=== PATIENT | male | born 1945 | race Caucasian/White ===

== ENCOUNTER 2017-10-22 15:42 | Inpatient (IN) | payer MEDICARE ==
[2017-10-22] MEDS ORDERED: methylPREDNISolone Sodium Succinate 125 MG/2 ML SDV IVPUSH ONE (15:57)
[2017-10-22] MEDS ORDERED: Albuterol/Ipratropium 3.0-0.5 MG/3 ML Neb Soln NEB ONE (15:57)
[2017-10-22] MEDS: Sodium Chloride 0.9% 10 ML Syringe FLUSH PRN ×2 (16:54→20:10)
--- NOTE | 2017-10-22 17:17 | EDM.PDOC ---
ED HPI GENERAL MEDICAL PROBLEM - General Chief Complaint: Lower Extremity Injury/Pain Stated Complaint: FELL YESTERDAY, L LEG WON'T MOVE Time Seen by Provider: 10/22/17 16:09 Source of Information: Reports: Patient, EMS History Limitations: Reports: Physical Impairment - History of Present Illness INITIAL COMMENTS - FREE TEXT/NARRATIVE: 72 y.o.w.m with a h/o COPD, obesity, poor hygiene, come to the ed by EMS 2 days after he fell at home, not able to get up from his chair. Pt refused to come to the ed yesterday, but agreed to come to the ed today. Pt was too week to ambulate due to SOB and left lower leg pain due to fall. BP 124/91 Pulse 103 Temp 37.1 Pulse ox 94% on 2 liters Onset Date: 10/21/17 Onset Time: 15:00 Duration: Day(s):, Getting Worse Location: Reports: Lower Extremity, Left, Generalized Treatments RECORDS OFFICER: Reports: Breathing Treatments, Splint(s) - Related Data Allergies Allergy/AdvReac Type Severity Reaction Status Date / Time No Known Allergies Allergy Verified 10/22/17 18:35 Home Meds: Home Meds Albuterol Sulfate [Ventolin Hfa] 2 puff PO ASDIRECTED PRN 10/22/17 [History] Albuterol/Ipratropium [Combivent Respimat] 2 puff PO Q4H 10/22/17 [History] Ipratropium/Albuterol Sulfate [Iprat-Albut 0.5-3(2.5) mg/3 ml] 3 ampule INH Q4H 10/22/17 [History] Lisinopril/Hydrochlorothiazide [Lisinopril-Hctz 10-12.5 mg Tab] 1 tab PO DAILY 10/22/17 [History] Past Medical History Cardiovascular History: Reports: Hypertension Respiratory History: Reports: COPD Gastrointestinal History: Reports: Hemorrhoids - Infectious Disease History Infectious Disease History: Reports: Measles - Past Surgical History GI Surgical History: Reports: Appendectomy, Colostomy Musculoskeletal Surgical History: Reports: Knee Replacement Social & Family History - Family History Family Medical History: Noncontributory - Tobacco Use Smoking Status *Q: Current Every Day Smoker Years of Tobacco use: 60 Packs/Tins Daily: 1 - Caffeine Use Caffeine Use: Reports: Coffee - Recreational Drug Use Recreational Drug Use: No Review of Systems - Review of Systems Review Of Systems: Unable To Obtain ED EXAM, GENERAL - Physical Exam Exam: See Below Exam Limited By: Physical Impairment General Appearance: Alert, WD/WN, Moderate Distress, Obese (morbid) Eye Exam: Bilateral Eye: Normal Inspection Ears: Normal External Exam Ear Exam: Bilateral Ear: Auricle Normal Nose: Normal Inspection, Normal Mucosa Throat/Mouth: Normal Inspection, Normal Lips, No Airway Compromise, Other (dry mucosal membrane) Head: Atraumatic, Normocephalic Neck: Normal Inspection, Supple, Non-Tender Respiratory/Chest: Respiratory Distress, Decreased Breath Sounds, Rhonchi, Wheezing, Prolonged Expiration Cardiovascular: Normal Peripheral Pulses GI/Abdominal: Normal Bowel Sounds, Soft, Other (obese) (Male) Exam: Deferred Rectal (Males) Exam: Deferred Back Exam: Normal Inspection, Full Range of Motion Extremities: Pedal Edema, Limited Range of Motion, Redness Neurological: Alert, CN II-XII Intact, Abnormal Gait Psychiatric: Normal Affect, Normal Mood Skin Exam: Warm, Dry, Rash (abdomen, left lower leg) Lymphatic: No Adenopathy Course - Vital Signs Text/Narrative:: 72 y.o.w.m with a h/o COPD, obesity, poor hygiene, come to the ed by EMS 2 days after he fell at home, not able to get up from his chair. Pt refused to come to the ed yesterday, but agreed to come to the ed today. Pt was too week to ambulate due to SOB and left lower leg pain due to fall. BP 124/91 Pulse 103 Temp 37.1 Pulse ox 94% on 2 liters PE: Morbid obese, poor hygiene, abd. wall and left lower leg cellulitis, left leg edema Imaging: T/F left leg X Ray neg. Leg neg for DVT, CXR: COPD Labs: WBC: 15.3 Lactic acid Impression: Morbid obese, COPD exacerbation, unkempt, abdominal cellulitis, gen weakness, chronic legedema left lower leg. left leg cellulitis Tx: Duoneb, Solu Medrol, Rocephin, Reexam: Improved 5.11 pm Consultation: Dr. Phillips, Hospitalist: Accepted pt for admission Plan: Admit to M/S Last Recorded V/S: Last Vital Signs Temp 36.9 C 10/23/17 09:00 Pulse 77 01/05/18 09:00 Resp 20 10/23/17 09:00 BP 140/77 10/23/17 09:00 Pulse Ox 96 10/23/17 09:00 - Orders/Labs/Meds Orders: Active Orders 24 hr Category Date Time Status Patient Status [ADT] Routine ADT 10/22/17 17:30 Active Oxygen Therapy [RC] PRN Care 10/22/17 17:30 Active RT Aerosol Therapy [RC] ASDIRECTED Care 10/22/17 15:57 Active Vital Signs [RC] Q4H Care 10/22/17 17:30 Active CULTURE BLOOD [BC] Stat Lab 10/22/17 17:50 Received CULTURE BLOOD [BC] Stat Lab 10/22/17 17:55 Received Sodium Chloride 0.9% [Saline Flush] Med 10/22/17 17:05 Active 10 ml FLUSH ASDIRECTED PRN Saline Lock Insert [OM.PC] Routine Oth 10/22/17 17:05 Ordered Resuscitation Status Routine Resus Stat 10/22/17 17:29 Ordered Medication Orders Albuterol (Proventil Neb Soln) 2.5 mg NEB Q4H PRN PRN Reason: sob Last Admin: 10/23/17 04:30 Dose: 2.5 mg Admin: 10/22/17 22:48 Dose: 2.5 mg Ceftriaxone Sodium (Rocephin) 2,000 mg IV Q24H [facility] Ceftriaxone Sodium 1,000 mg/ (Sodium Chloride) 50 mls @ 100 mls/hr IV ONETIME ONE Stop: 10/23/17 09:52 Methylprednisolone Sodium Succinate (Solu-Medrol) 125 mg IVPUSH Q8H EDILSON Last Admin: 10/23/17 09:18 Dose: 125 mg Admin: 10/23/17 01:19 Dose: 125 mg Sodium Chloride (Saline Flush) 10 ml FLUSH ASDIRECTED PRN PRN Reason: Keep Vein Open Last Admin: 10/23/17 01:19 Dose: 10 ml Admin: 10/22/17 20:10 Dose: 10 ml Admin: 10/22/17 16:54 Dose: 10 ml Labs: Laboratory Tests 10/22/17 10/22/17 10/22/17 Range/Units 16:25 16:25 16:25 WBC 15.9 H (4.5-12.0) X10-3/uL RBC 5.31 (4.30-5.75) x10(6)uL Hgb 16.4 H (11.5-15.5) g/dL Hct 49.0 (30.0-51.3) % MCV 92.3 (80-96) fL MCH 30.8 (27.7-33.6) pg MCHC 33.4 (32.2-35.4) g/dL RDW 14.2 (11.5-15.5) % Plt Count 243 (125-369) X10(3)uL MPV 7.8 (7.4-10.4) fL Neut % (Auto) 84.2 H (46-82) % Lymph % (Auto) 5.5 L (13-37) % [place] % (Auto) 8.1 (4-12) % Eos % (Auto) 0 L (1.0-5.0) % Baso % (Auto) 2 (0-2) % Neut # (Auto) 13.3 H (1.6-8.3) # Lymph # (Auto) 0.9 (0.6-5.0) # [place] # (Auto) 1.3 (0.0-1.3) # Eos # (Auto) 0.1 (0.0-0.8) # Baso # (Auto) 0.3 H (0.0-0.2) # PT 13.2 H (8.7-11.1) INR 1.30 H (0.89-1.13) Sodium 141 (135-145) mmol/L Potassium 3.7 (3.5-5.3) mmol/L Chloride 103 (100-110) mmol/L Carbon Dioxide 30 (21-32) mmol/L BUN 16 (7-18) mg/dL Creatinine 1.2 (0.70-1.30) mg/dL Est Cr Clr Drug Dosing 55.76 mL/min Estimated GFR (MDRD) 59 L (>60) BUN/Creatinine Ratio 13.3 (9-20) Glucose 109 (80-116) mg/dL Lactic Acid (0.4-2.2) mmol/L Calcium 9.2 (8.6-10.2) mg/dL Troponin I (<0.017-0.056) ng/mL NT-Pro-B Natriuret Pep (<=125) pg/mL 10/22/17 10/22/17 Range/Units 16:25 16:25 WBC (4.5-12.0) X10-3/uL RBC (4.30-5.75) x10(6)uL Hgb (11.5-15.5) g/dL Hct (30.0-51.3) % MCV (80-96) fL MCH (27.7-33.6) pg MCHC (32.2-35.4) g/dL RDW (11.5-15.5) % Plt Count (125-369) X10(3)uL MPV (7.4-10.4) fL Neut % (Auto) (46-82) % Lymph % (Auto) (13-37) % [place] % (Auto) (4-12) % Eos % (Auto) (1.0-5.0) % Baso % (Auto) (0-2) % Neut # (Auto) (1.6-8.3) # Lymph # (Auto) (0.6-5.0) # [place] # (Auto) (0.0-1.3) # Eos # (Auto) (0.0-0.8) # Baso # (Auto) (0.0-0.2) # PT (8.7-11.1) INR (0.89-1.13) Sodium (135-145) mmol/L Potassium (3.5-5.3) mmol/L Chloride (100-110) mmol/L Carbon Dioxide (21-32) mmol/L BUN (7-18) mg/dL Creatinine (0.70-1.30) mg/dL Est Cr Clr Drug Dosing mL/min Estimated GFR (MDRD) (>60) BUN/Creatinine Ratio (9-20) Glucose (80-116) mg/dL Lactic Acid 2.0 (0.4-2.2) mmol/L Calcium (8.6-10.2) mg/dL Troponin I < 0.017 L (<0.017-0.056) ng/mL NT-Pro-B Natriuret Pep 145 H (<=125) pg/mL Meds: Medications Generic Name Dose Route Start Last Admin Trade Name Freq PRN Reason Stop Dose Admin Albuterol 2.5 mg 10/22/17 22:41 10/23/17 04:30 Proventil Neb Soln NEB 2.5 mg Q4H PRN Administration sob Ceftriaxone Sodium 2,000 mg 10/23/17 20:00 Rocephin IV Q24H EDILSON Ceftriaxone Sodium 1,000 mg/ 50 mls @ 100 mls/hr 10/23/17 09:23 Sodium Chloride IV 10/23/17 09:52 ONETIME ONE Methylprednisolone Sodium Succinate 125 mg 10/23/17 01:00 10/23/17 09:18 Solu-Medrol IVPUSH 125 mg Q8H EDILSON Administration Sodium Chloride 10 ml 10/22/17 17:05 10/23/17 01:19 Saline Flush FLUSH 10 ml ASDIRECTED PRN Administration Keep Vein Open Discontinued Medications Generic Name Dose Route Start Last Admin Trade Name Freq PRN Reason Stop Dose Admin Albuterol/Ipratropium 3 ml 10/22/17 15:57 10/22/17 16:56 Duoneb 3.0-0.5 Mg/3 Ml NEB 10/22/17 15:58 3 ml ONETIME ONE Administration Ceftriaxone Sodium 1,000 mg 10/22/17 20:00 10/22/17 20:09 Rocephin IV 1,000 mg Q24H EDILSON Administration Ceftriaxone Sodium 1,000 mg/ 50 mls @ 100 mls/hr 10/22/17 17:45 10/22/17 21: 19 Sodium Chloride IV Not Given Q24H EDILSON Methylprednisolone Sodium Succinate 125 mg 10/22/17 15:57 10/22/17 16:54 Solu-Medrol IVPUSH 10/22/17 15:58 125 mg ONETIME ONE Administration Methylprednisolone Sodium Succinate 125 mg 10/22/17 17:45 10/22/17 18:46 Solu-Medrol IVPUSH Not Given Q8H EDILSON Departure - Departure Time of Disposition: 20:00 Disposition: Refer to Observation Condition: Fair Clinical Impression: COPD (chronic obstructive pulmonary disease) Qualifiers: COPD type: chronic bronchitis Chronic bronchitis type: unspecified Qualified Code(s): J42 - Unspecified chronic bronchitis - Discharge Information - My Orders Last 24 Hours: My Active Orders 10/22/17 15:57 RT Aerosol Therapy [RC] ASDIRECTED 10/22/17 17:05 Sodium Chloride 0.9% [Saline Flush] 10 ml FLUSH ASDIRECTED PRN Saline Lock Insert [OM.PC] Routine 10/22/17 17:29 Resuscitation Status Routine 10/22/17 17:30 Patient Status [ADT] Routine Oxygen Therapy [RC] PRN Vital Signs [RC] Q4H 10/22/17 17:50 CULTURE BLOOD [BC] Stat 10/22/17 17:55 CULTURE BLOOD [BC] Stat - Assessment/Plan Last 24 Hours: My Active Orders 10/22/17 15:57 RT Aerosol Therapy [RC] ASDIRECTED 10/22/17 17:05 Sodium Chloride 0.9% [Saline Flush] 10 ml FLUSH ASDIRECTED PRN Saline Lock Insert [OM.PC] Routine 10/22/17 17:29 Resuscitation Status Routine 10/22/17 17:30 Patient Status [ADT] Routine Oxygen Therapy [RC] PRN Vital Signs [RC] Q4H 10/22/17 17:50 CULTURE BLOOD [BC] Stat 10/22/17 17:55 CULTURE BLOOD [BC] Stat
[2017-10-22] MEDS ORDERED: cefTRIAXone 1,000 MG in Sodium Chloride 0.9% 50 ML IV SCH (17:45)
[2017-10-22] MEDS ORDERED: methylPREDNISolone Sodium Succinate 125 MG/2 ML SDV IVPUSH SCH (17:45)
[2017-10-22] MEDS ORDERED: cefTRIAXone 1,000 MG VIAL IV SCH (20:00)
[2017-10-22] MEDS: Albuterol 0.083% 2.5 MG/3 ML Neb Soln NEB PRN (22:48)
[2017-10-23] MEDS: methylPREDNISolone Sodium Succinate 125 MG/2 ML SDV IVPUSH SCH ×3 (01:19→17:25)
[2017-10-23] MEDS: Sodium Chloride 0.9% 10 ML Syringe FLUSH PRN ×3 (01:19→19:48)
[2017-10-23] MEDS: Albuterol 0.083% 2.5 MG/3 ML Neb Soln NEB PRN ×2 (04:30→14:46)
--- NOTE | 2017-10-23 09:00 | US ---
INDICATION: Swelling of left leg. Question DVT. DUPLEX ULTRASOUND, LEFT LOWER EXTREMITY VEINS: Utilizing 2-D real time, duplex Doppler spectral analysis, and color flow imaging, examination of the left lower extremity veins revealed no evidence of deep venous thrombosis or obstruction. Compression views showed no abnormal lack of compression to suggest thrombosis. Valvular competence was not evaluated. IMPRESSION: Duplex ultrasound, left lower extremity veins, shows no evidence of deep venous thrombosis. MTDD
--- NOTE | 2017-10-23 09:08 | CR ---
INDICATION: Fell yesterday. Pain by ankle. LEFT TIBIA AND FIBULA: Frontal and lateral views of the left tibia and fibula were obtained 10/22/2017. No comparison study. Total knee arthroplasty is noted, which appears to be in good position and alignment, without a definite complicating process. A fracture or dislocation was not identified. There appears to be some interstitial edema in the calf. Prevertebral swelling is suggested. IMPRESSION: No acute fracture or dislocation. Examination was obtained portable. [facility]
--- NOTE | 2017-10-23 09:10 | CR ---
INDICATION: Short of breath. CHEST: Portable AP upright view of the chest 10/22/2017, was compared with 07/2012 and revealed an appearance of enlargement of the heart. This is emphasized by the AP positioning. The aorta is tortuous with calcification in the arch. Overlying EKG lead and connectors are noted. A definite active infiltrate or effusion was not identified. There is suggestion of hyperaeration with flattening of diaphragm leaves, suggesting COPD. No definite evidence of CHF is seen. IMPRESSION: 1. No definite acute process. 2. Difficult to entirely exclude patchy pneumonia at the right lung base - localized eventration likely with this appearance, or possibly epicardial fat pad. 3. ASHD. 4. COPD. MTDD
[2017-10-23] MEDS ORDERED: cefTRIAXone 1,000 MG in Sodium Chloride 0.9% 50 ML IV ONE (09:23)
--- NOTE | 2017-10-23 09:33 | CR ---
INDICATION: Trauma. LEFT ANKLE: Three views of the left ankle revealed no definite fracture or dislocation. The ankle mortise appears to be intact. There does appear to be some mild degenerative change at the ankle mortise, however. The bony structures may be slightly demineralized, raising question of osteomalacia or osteoporosis. This should be correlated clinically. Arterial calcifications are noted in the calf. A moderately large sized plantar calcaneal spur is also noted. IMPRESSION: No acute fracture or dislocation. Other findings are as noted above. Report was called to Dr. Aldridge soon after the examination was completed. [facility]
[2017-10-23] MEDS ORDERED: cefTRIAXone 1,000 MG VIAL IV ONE (10:00)
[2017-10-23] MEDS ORDERED: Furosemide 40 MG/4 ML VIAL IVPUSH ONE (12:19)
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
[2017-10-23] MEDS: Hydrochlorothiazide/Lisinopril 12.5-10 MG Tab PO SCH (14:44)
[2017-10-23] MEDS: Insulin Aspart 100 Units/ML 3 ML Pen SUBCUT SCH (17:44)
[2017-10-23] MEDS: cefTRIAXone 2 GM Vial IV SCH (19:47)
[2017-10-24] MEDS: methylPREDNISolone Sodium Succinate 125 MG/2 ML SDV IVPUSH SCH ×3 (01:30→17:03)
[2017-10-24] MEDS: Sodium Chloride 0.9% 10 ML Syringe FLUSH PRN ×3 (01:30→19:23)
[2017-10-24] MEDS: Albuterol 0.083% 2.5 MG/3 ML Neb Soln NEB PRN ×2 (03:52→09:26)
[2017-10-24] MEDS: Insulin Aspart 100 Units/ML 3 ML Pen SUBCUT SCH ×3 (08:07→18:52)
[2017-10-24] MEDS: Hydrochlorothiazide/Lisinopril 12.5-10 MG Tab PO SCH (08:08)
--- NOTE | 2017-10-24 09:02 | PCM.PN ---
- General Info Date of Service: 10/24/17 Subjective Update: 72-year-old male admitted for COPD exacerbation, chronic lower extremity edema with acute onset left leg cellulitis on continuous oxygen saturation monitoring secondary to hypoxia and respiratory distress he is alert and awake sitting at edge of his bed pleasant and conversant.. Functional Status: Reports: Pain Controlled (He did try to ambulate to the bathroom and admits decreased in left foot pain but still present.), Tolerating Diet, Ambulating, Urinating (Incontinent of urine but making several significantly wet diapers and intermittent stools.), Incentive Spirometry - Review of Systems General: Reports: Weakness, Fatigue HEENT: Denies: Headaches, Sore Throat Pulmonary: Reports: Shortness of Breath, Cough, Sputum Cardiovascular: Reports: Dyspnea on Exertion, Edema. Denies: Chest Pain, Palpitations, Lightheadedness Gastrointestinal: Reports: No Symptoms Genitourinary: Reports: Incontinence. Denies: Dysuria, Hematuria, Flank Pain Musculoskeletal: Reports: Leg Pain, Joint Swelling Skin: Reports: Dryness (Legs bilaterally) Neurological: Reports: Difficulty Walking. Denies: Numbness, Tingling, Trouble Speaking, Change in Speech Psychiatric: Reports: No Symptoms - Patient Data Vitals - Most Recent: Last Vital Signs Temp 98.1 F 10/24/17 01:36 Pulse 100 10/24/17 01:36 Resp 18 10/24/17 01:36 BP 147/85 H 10/24/17 08:08 Pulse Ox 94 L 10/24/17 01:36 Weight - Most Recent: 130.997 kg I&O - Last 24 Hours: Intake & Output 10/23/17 10/24/17 10/24/17 22:59 06:59 14:59 Intake Total 400 Balance 400 Lab Results Last 24 Hours: Laboratory Results - last 24 hr 10/23/17 10/23/17 10/23/17 Range/Units 14:00 17:22 21:03 WBC (4.5-12.0) X10-3/uL RBC (4.30-5.75) x10(6)uL Hgb (11.5-15.5) g/dL Hct (30.0-51.3) % MCV (80-96) fL MCH (27.7-33.6) pg MCHC (32.2-35.4) g/dL RDW (11.5-15.5) % Plt Count (125-369) X10(3)uL Sodium (135-145) mmol/L Potassium (3.5-5.3) mmol/L Chloride (100-110) mmol/L Carbon Dioxide (21-32) mmol/L BUN (7-18) mg/dL Creatinine (0.70-1.30) mg/dL Est Cr Clr Drug Dosing mL/min Estimated GFR (MDRD) (>60) BUN/Creatinine Ratio (9-20) Glucose (80-116) mg/dL POC Glucose 113 150 H (80-116) mg/dL Hemoglobin A1c (4.5-6.2) % Uric Acid 7.8 H (2.6-6.0) mg/dL Calcium (8.6-10.2) mg/dL Total Bilirubin (0.1-1.3) mg/dL AST (5-25) IU/L ALT (12-36) U/L Alkaline Phosphatase (56-112) IU/L Total Protein (6.0-8.0) g/dL Albumin (3.2-4.6) g/dL Globulin g/dL Albumin/Globulin Ratio 10/24/17 10/24/17 10/24/17 Range/Units 06:15 06:15 06:15 WBC 17.3 H (4.5-12.0) X10-3/uL RBC 5.17 (4.30-5.75) x10(6)uL Hgb 16.0 H (11.5-15.5) g/dL Hct 48.5 (30.0-51.3) % MCV 93.7 (80-96) fL MCH 30.9 (27.7-33.6) pg MCHC 33.0 (32.2-35.4) g/dL RDW 14.0 (11.5-15.5) % Plt Count 225 (125-369) X10(3)uL Sodium 143 (135-145) mmol/L Potassium 4.1 (3.5-5.3) mmol/L Chloride 103 (100-110) mmol/L Carbon Dioxide 33 H (21-32) mmol/L BUN 31 H D (7-18) mg/dL Creatinine 1.1 (0.70-1.30) mg/dL Est Cr Clr Drug Dosing 60.83 mL/min Estimated GFR (MDRD) > 60 (>60) BUN/Creatinine Ratio 28.2 H (9-20) Glucose 137 H (80-116) mg/dL POC Glucose (80-116) mg/dL Hemoglobin A1c 5.8 (4.5-6.2) % Uric Acid (2.6-6.0) mg/dL Calcium 9.4 (8.6-10.2) mg/dL Total Bilirubin 0.4 (0.1-1.3) mg/dL AST 20 (5-25) IU/L ALT 24 (12-36) U/L Alkaline Phosphatase 121 H (56-112) IU/L Total Protein 7.7 (6.0-8.0) g/dL Albumin 3.1 L (3.2-4.6) g/dL Globulin 4.6 g/dL Albumin/Globulin Ratio 0.7 /04/05 Range/Units 07:28 WBC (4.5-12.0) X10-3/uL RBC (4.30-5.75) x10(6)uL Hgb (11.5-15.5) g/dL Hct (30.0-51.3) % MCV (80-96) fL MCH (27.7-33.6) pg MCHC (32.2-35.4) g/dL RDW (11.5-15.5) % Plt Count (125-369) X10(3)uL Sodium (135-145) mmol/L Potassium (3.5-5.3) mmol/L Chloride (100-110) mmol/L Carbon Dioxide (21-32) mmol/L BUN (7-18) mg/dL Creatinine (0.70-1.30) mg/dL Est Cr Clr Drug Dosing mL/min Estimated GFR (MDRD) (>60) BUN/Creatinine Ratio (9-20) Glucose (80-116) mg/dL POC Glucose 128 H (80-116) mg/dL Hemoglobin A1c (4.5-6.2) % Uric Acid (2.6-6.0) mg/dL Calcium (8.6-10.2) mg/dL Total Bilirubin (0.1-1.3) mg/dL AST (5-25) IU/L ALT (12-36) U/L Alkaline Phosphatase (56-112) IU/L Total Protein (6.0-8.0) g/dL Albumin (3.2-4.6) g/dL Globulin g/dL Albumin/Globulin Ratio Med Orders - Current: Current Medications Albuterol (Proventil Neb Soln) 2.5 mg NEB Q4H PRN PRN Reason: sob Last Admin: 10/24/17 03:52 Dose: 2.5 mg Ceftriaxone Sodium (Rocephin) 2 gm IV Q24H [facility] Last Admin: 10/23/17 19:47 Dose: 2 gm Lisinopril/HCTZ (Lisinopril/Hctz 10-12.5 Mg) 1 tab PO DAILY [facility] Last Admin: 10/24/17 08:08 Dose: 1 tab Azithromycin 500 mg/ Sodium (Chloride) 250 mls @ 250 mls/hr IV Q24H [facility] Stop: 10/27/17 13:29 Last Admin: 10/23/17 13:25 Dose: 250 mls/hr Insulin Aspart (Novolog) 0 unit SUBCUT TIDMEALS [facility] PRN Reason: Protocol Last Admin: 10/24/17 08:07 Dose: Not Given Methylprednisolone Sodium Succinate (Solu-Medrol) 125 mg IVPUSH Q8H [facility] Last Admin: 10/24/17 08:08 Dose: 125 mg Sodium Chloride (Saline Flush) 10 ml FLUSH ASDIRECTED PRN PRN Reason: Keep Vein Open Last Admin: 10/24/17 01:30 Dose: 10 ml Discontinued Medications Albuterol/Ipratropium (Duoneb 3.0-0.5 Mg/3 Ml) 3 ml NEB ONETIME ONE Stop: 10/22/17 15:58 Last Admin: 10/22/17 16:56 Dose: 3 ml Ceftriaxone Sodium (Rocephin) 1,000 mg IV Q24H [facility] Last Admin: 10/22/17 20:09 Dose: 1,000 mg Ceftriaxone Sodium (Rocephin) 1,000 mg IV ONETIME ONE Stop: 10/23/17 10:01 Last Admin: 10/23/17 10:46 Dose: 1,000 mg Furosemide (Lasix) 40 mg IVPUSH NOW ONE Stop: 10/23/17 12:20 Last Admin: 10/23/17 13:26 Dose: 40 mg Ceftriaxone Sodium 1,000 mg/ (Sodium Chloride) 50 mls @ 100 mls/hr IV Q24H [facility] Last Admin: 10/22/17 21:19 Dose: Not Given Methylprednisolone Sodium Succinate (Solu-Medrol) 125 mg IVPUSH ONETIME ONE Stop: 10/22/17 15:58 Last Admin: 10/22/17 16:54 Dose: 125 mg Methylprednisolone Sodium Succinate (Solu-Medrol) 125 mg IVPUSH Q8H [facility] Last Admin: 10/22/17 18:46 Dose: Not Given - Exam Physical Findings Comments:: Quality Assessment: Supplemental Oxygen (3L NC), Skin Breakdown General: Alert, Oriented, Cooperative, mild distress (Sitting upright at edge of bed. His respiratory rate is now 22-24. He no longer has circumoral cyanosis. Saturations off oxygen for 2 minutes 85-86%. With oxygen up to 3 L it raises to 91-92% with respiration dropping down to roughly 22 bpm after 4 minutes. Color improved. He expresses his breathing is a bit better. HEENT: Conjunctiva Clear, Pupils Equal, Other (Mallampati class I). No: Mucosa Moist & [place], Scleral Icterus Neck: Trachea Midline, Other (Globus neck, short. Full range of motion. Would be a difficult intubation.). Lungs: Decreased Breath Sounds, Crackles (Findings coarse rales noted bilateral lower and mid su equal chest wall expansion bilaterally), Wheezing ( Expiratory wheezing heard throughout similar to yesterday. Cough is course but thinks he can provide me a sputum sample). No: Normal Respiratory Effort (He has a short inspiratory phase and prolonged expiratory phase. Is a "blue bloater ") Cardiovascular: Regular Rate, Regular irregular Rhythm, Other (No audible murmurs at this time however body habitus does make it difficult to assess. GI/Abdominal Exam: Normal Bowel Sounds, Non-Tender, Distended (Physiologic, unable to assess for any mass or organomegaly.). No: Rigid (Male) Exam: Deferred Rectal (Males) Exam: Deferred Back Exam: Normal Inspection Extremities: Non-Tender, Slow Capillary Refill, Joint Swelling (Ankle swelling bilaterally), Increased Warmth (Increased warmth to the dorsum of the foot on the left has reduced quite a bit, but still up to the midcalf with erythema there is also a small 0.5 cm stage II superficial ulceration to the medial aspect of the fourth digit on the left foot there is no oozing or weeping or discharge. Right leg also shows overall improvement regards to warmness and erythema along the dorsum plantar aspect of the foot with swelling in the ankle and erythema up to the mid calf which is less than the left side in comparison. There are no open wounds or lesions. He does have bilateral thick calluses to the heels. No open cracks. 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 I see no other lesions. Very poor foot cares.) Peripheral Pulses: 1+: Posterior Tibial (L), Posterior Tibial (R), 2+: Dorsalis Pedis (L), Dorsalis Pedis (R) Skin: Wound (0.5 cm stage II ulceration medial aspect interdigits of the left fourth digit), we are keeping 2 x 2's between each of the digits to prevent rubbing Neurological: Strength Equal Bilateral, Normal Speech. 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 He is pleasant and cooperative Neuro Extensive - Motor, Sensory, Reflexes: CN II-XII Intact Psychiatric: Alert, Normal Affect, Normal Mood - Problem List & Annotations (1) COPD with acute exacerbation SNOMED Code(s): 995012813 Code(s): J44.1 - CHRONIC OBSTRUCTIVE PULMONARY DISEASE W (ACUTE) EXACERBATION Status: Acute Current Visit: Yes (2) Cellulitis of left lower leg SNOMED Code(s): 328734483 Code(s): L03.116 - CELLULITIS OF LEFT LOWER LIMB Status: Acute Current Visit: Yes (3) Acute respiratory distress SNOMED Code(s): 479977214 Code(s): R06.03 - ACUTE RESPIRATORY DISTRESS Status: Acute Current Visit : Yes (4) Hypoxia SNOMED Code(s): 092025309 Code(s): R09.02 - HYPOXEMIA Status: Acute Current Visit: Yes (5) DNI (do not intubate) SNOMED Code(s): 601789123 Code(s): Z78.9 - OTHER SPECIFIED HEALTH STATUS Status: Acute Current Visit: Yes (6) DNR (do not resuscitate) Status: Acute Current Visit: Yes (7) Palliative care status SNOMED Code(s): 100956172 Code(s): Z51.5 - ENCOUNTER FOR PALLIATIVE CARE Status: Acute Current Visit: Yes (8) CO2 retention SNOMED Code(s): 88939211 Code(s): E87.2 - ACIDOSIS Status: Chronic Current Visit: Yes (9) Venous stasis of both lower extremities SNOMED Code(s): 815786139 Code(s): I87.8 - OTHER SPECIFIED DISORDERS OF VEINS Status: Chronic Current Visit: Yes (10) Need for home health care SNOMED Code(s): 866025049 Code(s): Z74.2 - NEED FOR ASSIST AT HOME & NO HOUSE MEMB ABLE TO RENDER CARE Status: Acute Current Visit: Yes (11) Morbid exogenous obesity SNOMED Code(s): 656539741 Code(s): E66.01 - MORBID (SEVERE) OBESITY DUE TO EXCESS CALORIES Status: Chronic Current Visit: Yes - Problem List Review Problem List Initiated/Reviewed/Updated: Yes - My Orders Last 24 Hours: My Active Orders 10/23/17 12:20 Intake and Output Strict [RC] 06,10,14,18,22,02 10/23/17 12:22 Blood Glucose Check, Bedside [RC] 0630,1130,1730 Overnight Pulse Oximetry [RC] Click to Edit Pulse Oximetry Continuous Monitoring [OM.PC] Routine 10/23/17 12:30 Azithromycin [Zithromax] 500 mg Sodium Chloride 0.45% 250 ml IV Q24H 10/23/17 14:30 Hydrochlorothiazide/Lisinopril [Lisinopril/HCTZ 10-12.5 MG] 1 tab PO DAILY 10/23/17 14:34 Code Status [Resuscitation Status] Routine 10/23/17 17:30 CULTURE SPUTUM + SMEAR [RM] Routine 10/23/17 18:00 Insulin Aspart [NovoLOG] See Protocol SUBCUT TIDMEALS - Assessment Assessment:: Please see above - Plan Plan:: Very complicated patient with several comorbidities resulting in a poor to fair prognosis. He has restrictive and obstructive COPD and would be a difficult intubation. He is obviously a chronic CO2 retainer so will need to be cautious with regards to keeping his sats no higher than 93% but also monitoring his work of breathing. We have been able to wean him down from 2-3 L of oxygen keeping his respiratory rate 18-22. ABG shows mild acidosis with mild CO2 retention and renal compensation PO2 is low at 62. He is on DuoNeb 4 times a day, incentive spirometry every 2 hours while awake attempt to get a sputum culture. we'll keep the head of his bed elevated, starting IV steroids for acute COPD exacerbation along with IV Rocephin and azithromycin for clinical signs of pneumonia, as well as covering cellulitis of left lower extremity not at risk for MRSA. uric acid level mildly elevated. May need to consider allpurinol outpt. ulceration covered with bacitracin and looks good. elevated the left lower extremity and Blu wraps to bilateral lower extremities overnight has significantly improved the swelling in his legs which he himself notices as well. Try to get an echocardiogram on Thursday. He'll continue his home lisinopril. He will get therapeutic Lovenox injections to prevent DVTs. He will definitely need home health upon discharge regarding ADLs especially of the lower extremities. We'll likely need home O2 as well. Pulmonary status is guarded. I did discuss with him in detail that with this increased work of breathing high levels of O2 he may need to be converted to Ventimask versus BiPAP versus intubation and mechanical ventilation. He denied wanting any intubation or mechanical ventilation. I also informed him that the stress of his heart could possibly lead to failure, blocks or potential asystole at which point he was require cardiac resuscitation possibly in the form mechanical chest compressions cardiac defibrillation, which he indicates he would not want this should this need to be performed. We'll continue to treat his comorbidities appropriately and any medication changes will be documented in the chart for outpatient follow-up. He will eventually need a sleep study. he remains DNI/DNR, and palliative care. He does agree to the above recommendations and plan of care in this acute setting. Anticipate discharge from inpatient greater than 72 hours and possible need for swing bed status for continued PT OT assessments and treatment for ambulation mobility leg cares and safety assessment. This will require home health as well.
[2017-10-24] MEDS: Albuterol/Ipratropium 3.0-0.5 MG/3 ML Neb Soln NEB SCH ×2 (16:58→20:40)
[2017-10-24] MEDS: cefTRIAXone 2 GM Vial IV SCH (19:23)
[2017-10-25] MEDS: methylPREDNISolone Sodium Succinate 125 MG/2 ML SDV IVPUSH SCH ×3 (01:25→17:18)
[2017-10-25] MEDS: Sodium Chloride 0.9% 10 ML Syringe FLUSH PRN ×2 (01:27→20:00)
[2017-10-25] MEDS: Albuterol 0.083% 2.5 MG/3 ML Neb Soln NEB PRN (01:40)
[2017-10-25] MEDS: Albuterol/Ipratropium 3.0-0.5 MG/3 ML Neb Soln NEB SCH ×4 (07:33→20:20)
[2017-10-25] MEDS: Insulin Aspart 100 Units/ML 3 ML Pen SUBCUT SCH ×3 (08:33→17:24)
[2017-10-25] MEDS: Hydrochlorothiazide/Lisinopril 12.5-10 MG Tab PO SCH (08:33)
--- NOTE | 2017-10-25 11:54 | PCM.PN ---
- General Info Date of Service: 10/25/17 Subjective Update: 72-year-old male admitted for COPD exacerbation, chronic lower extremity edema with acute onset left leg cellulitis on continuous oxygen saturation monitoring secondary to hypoxia and respiratory distress he is alert and awake sitting at edge of his bed pleasant and conversant. JACQUELIN wraps are on and he tolerates these well when on. Removed prior to exam. He has no complaints today and admits his breathing is a bit better. Cough is loosening. He's had no choking with intake. Pain in his left leg is improving. Functional Status: Reports: Pain Controlled, Tolerating Diet, Ambulating, Urinating (Incontinent of urine but making several significantly wet diapers and intermittent stools.), Incentive Spirometry volumes 500-700. Nursing denies any events overnight - Review of Systems Systems Review Comment:: General: Reports: Weakness, Fatigue improving a bit. HEENT: Denies: Headaches, Sore Throat Pulmonary: Reports: Shortness of Breath, Cough, Sputum loosening up Cardiovascular: Reports: Dyspnea on Exertion, Edema improving. Denies: Chest Pain, Palpitations, Lightheadedness Gastrointestinal: Reports: No Symptoms Genitourinary: Reports: Incontinence. Denies: Dysuria, Hematuria, Flank Pain Musculoskeletal: Reports: Leg Pain, Joint Swelling but reducing. Skin: Reports: Dryness (Legs bilaterally) just started adding lotion to skin bid. Neurological: Reports: Difficulty Walking. Denies: Numbness, Tingling, Trouble Speaking, Change in Speech Psychiatric: Reports: No Symptoms - Patient Data Vitals - Most Recent: Last Vital Signs Temp 97.8 F 10/25/17 08:00 Pulse 88 10/25/17 11:22 Resp 20 10/25/17 08:00 BP 120/62 10/25/17 08:33 Pulse Ox 94 L 2 l 10/25/17 11:22 Weight - Most Recent: 130.997 kg I&O - Last 24 Hours: Intake & Output 10/24/17 10/25/17 10/25/17 22:59 06:59 14:59 Intake Total 300 Output Total 0 Balance 300 Lab Results Last 24 Hours: Laboratory Results - last 24 hr 10/24/17 10/24/17 10/25/17 Range/Units 17:10 20:47 06:35 WBC 15.6 H (4.5-12.0) X10-3/uL RBC 5.15 (4.30-5.75) x10(6)uL Hgb 15.5 (11.5-15.5) g/dL Hct 48.0 (30.0-51.3) % MCV 93.2 (80-96) fL MCH 30.1 (27.7-33.6) pg MCHC 32.3 (32.2-35.4) g/dL RDW 14.1 (11.5-15.5) % Plt Count 249 (125-369) X10(3)uL MPV 8.2 (7.4-10.4) fL Add Manual Diff Yes Neutrophils % (Manual) 98 H (46-82) % Lymphocytes % (Manual) 2 L (13-37) % ABG pH (7.35-7.45) ABG pCO2 (35-45) mmHg ABG pO2 (83-108) mmHg ABG HCO3 (22-26) mmol/L ABG O2 Saturation (96-97) % ABG Base Excess (-2-2) Ponce Test O2 Delivery Device Sodium (135-145) mmol/L Potassium (3.5-5.3) mmol/L Chloride (100-110) mmol/L Carbon Dioxide (21-32) mmol/L BUN (7-18) mg/dL Creatinine (0.70-1.30) mg/dL Est Cr Clr Drug Dosing mL/min Estimated GFR (MDRD) (>60) BUN/Creatinine Ratio (9-20) Glucose (80-116) mg/dL POC Glucose 106 167 H (80-116) mg/dL Calcium (8.6-10.2) mg/dL 10/25/17 10/25/17 10/25/17 Range/Units 06:35 07:55 11:18 WBC (4.5-12.0) X10-3/uL RBC (4.30-5.75) x10(6)uL Hgb (11.5-15.5) g/dL Hct (30.0-51.3) % MCV (80-96) fL MCH (27.7-33.6) pg MCHC (32.2-35.4) g/dL RDW (11.5-15.5) % Plt Count (125-369) X10(3)uL MPV (7.4-10.4) fL Add Manual Diff Neutrophils % (Manual) (46-82) % Lymphocytes % (Manual) (13-37) % ABG pH 7.40 (7.35-7.45) ABG pCO2 48 H (35-45) mmHg ABG pO2 65 L (83-108) mmHg ABG HCO3 29 H (22-26) mmol/L ABG O2 Saturation 92 L (96-97) % ABG Base Excess 3.0 H (-2-2) Ponce Test Passed O2 Delivery Device Nasal cannula Sodium 141 (135-145) mmol/L Potassium 3.9 (3.5-5.3) mmol/L Chloride 101 (100-110) mmol/L Carbon Dioxide 31 (21-32) mmol/L BUN 40 H (7-18) mg/dL Creatinine 1.3 (0.70-1.30) mg/dL Est Cr Clr Drug Dosing 51.47 mL/min Estimated GFR (MDRD) 54 L (>60) BUN/Creatinine Ratio 30.8 H (9-20) Glucose 144 H (80-116) mg/dL POC Glucose 138 H (80-116) mg/dL Calcium 9.4 (8.6-10.2) mg/dL [place] Results Last 24 Hours: blood and sputum cultures pending Med Orders - Current: Current Medications Albuterol (Proventil Neb Soln) 2.5 mg NEB Q4H PRN PRN Reason: sob Last Admin: 10/25/17 01:40 Dose: 2.5 mg Albuterol/Ipratropium (Duoneb 3.0-0.5 Mg/3 Ml) 3 ml NEB QIDRT [facility] Last Admin: 10/25/17 11:04 Dose: 3 ml Ceftriaxone Sodium (Rocephin) 2 gm IV Q24H [facility] Last Admin: 10/24/17 19:23 Dose: 2 gm Lisinopril/HCTZ (Lisinopril/Hctz 10-12.5 Mg) 1 tab PO DAILY [facility] Last Admin: 10/25/17 08:33 Dose: 1 tab Azithromycin 500 mg/ Sodium (Chloride) 250 mls @ 250 mls/hr IV Q24H [facility] Stop: 10/27/17 13:29 Last Admin: 10/24/17 11:44 Dose: 250 mls/hr Insulin Aspart (Novolog) 0 unit SUBCUT TIDMEALS [facility] PRN Reason: Protocol Last Admin: 10/25/17 08:33 Dose: Not Given Methylprednisolone Sodium Succinate (Solu-Medrol) 125 mg IVPUSH Q8H [facility] Last Admin: 10/25/17 08:33 Dose: 125 mg Sodium Chloride (Saline Flush) 10 ml FLUSH ASDIRECTED PRN PRN Reason: Keep Vein Open Last Admin: 10/25/17 01:27 Dose: 10 ml Discontinued Medications Albuterol/Ipratropium (Duoneb 3.0-0.5 Mg/3 Ml) 3 ml NEB ONETIME ONE Stop: 10/22/17 15:58 Last Admin: 10/22/17 16:56 Dose: 3 ml Ceftriaxone Sodium (Rocephin) 1,000 mg IV Q24H [facility] Last Admin: 10/22/17 20:09 Dose: 1,000 mg Ceftriaxone Sodium (Rocephin) 1,000 mg IV ONETIME ONE Stop: 10/23/17 10:01 Last Admin: 10/23/17 10:46 Dose: 1,000 mg Furosemide (Lasix) 40 mg IVPUSH NOW ONE Stop: 10/23/17 12:20 Last Admin: 10/23/17 13:26 Dose: 40 mg Ceftriaxone Sodium 1,000 mg/ (Sodium Chloride) 50 mls @ 100 mls/hr IV Q24H [facility] Last Admin: 10/22/17 21:19 Dose: Not Given Methylprednisolone Sodium Succinate (Solu-Medrol) 125 mg IVPUSH ONETIME ONE Stop: 10/22/17 15:58 Last Admin: 10/22/17 16:54 Dose: 125 mg Methylprednisolone Sodium Succinate (Solu-Medrol) 125 mg IVPUSH Q8H [facility] Last Admin: 10/22/17 18:46 Dose: Not Given - Exam Physical Findings Comments:: Quality Assessment: Supplemental Oxygen (2L NC), Skin Breakdown General: Alert, Oriented, Cooperative, no distress (Sitting upright at edge of bed. His respiratory rate is now 22-24. He has no circumoral cyanosis. 86-92%. With oxygen up to 2-3 L respiration dropping down to roughly 20-22 bpm . Color much improved. He expresses his breathing is a getting better. HEENT: Conjunctiva Clear, Pupils Equal, No: Mucosa Moist & [place], Scleral Icterus Neck: Trachea Midline, Other (Globus neck, short. Full range of motion. Would be a difficult intubation.). Lungs: Improving aeration to the bases bilaterally still diminished however, Crackles (Findings coarse rales noted bilateral lower, su equal chest wall expansion bilaterally), Wheezing (Expiratory wheezing heard much improved from yesterday. Cough is is looser and he was able to provide a sputum sample which we are still waiting on ID susceptibilities). No: Normal Respiratory Effort ( He has a short inspiratory phase and prolonged expiratory phase. Which is chronic for him as he is a "blue bloater") Cardiovascular: Regular Rate, Regular irregular Rhythm, Other (No audible murmurs at this time however body habitus does make it difficult to assess. GI/Abdominal Exam: Normal Bowel Sounds, Non-Tender, Distended (Physiologic, unable to assess for any mass or organomegaly.). No: Rigid Back Exam: Normal Inspection Extremities: Non-Tender, Capillary Refill improved, Joint Swelling (Ankle swelling bilaterally) again both improving, Increased Warmth (Increased warmth to the dorsum of the foot on the left has reduced quite a bit even from yesterday, but still mild up to the midcalf with erythema. there is also a small 0.25 cm stage II superficial ulceration to the medial aspect of the fourth digit on the left foot. there is no oozing or weeping or discharge. Right leg also shows overall improvement regards to warmness and erythema along the dorsum plantar aspect of the foot with swelling in the ankle and erythema up to the mid calf which is less than the left side in comparison but with reduced swelling in the left they are starting to look more symmetric in circumference. There are no open wounds or lesions. He does have bilateral thick calluses to the heels. No open cracks. 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 I see no other lesions. Foot cares are looking much better thanks to our nursing staff. Peripheral Pulses: 1+: Posterior Tibial (L), Posterior Tibial (R), 2+: Dorsalis Pedis (L), Dorsalis Pedis (R) Skin: Wound (0.25 cm stage II ulceration medial aspect interdigits of the left fourth digit), we are keeping 2 x 2's between each of the digits to prevent rubbing Neurological: Strength Equal Bilateral, Normal Speech. 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 He is pleasant and cooperative Neuro Extensive - Motor, Sensory, Reflexes: CN II-XII Intact Psychiatric: Alert, Normal Affect, Normal Mood - Problem List & Annotations (1) COPD with acute exacerbation SNOMED Code(s): 010176439 Code(s): J44.1 - CHRONIC OBSTRUCTIVE PULMONARY DISEASE W (ACUTE) EXACERBATION Status: Acute Current Visit: Yes (2) Cellulitis of left lower leg SNOMED Code(s): 090237925 Code(s): L03.116 - CELLULITIS OF LEFT LOWER LIMB Status: Acute Current Visit: Yes (3) Acute respiratory distress SNOMED Code(s): 918784991 Code(s): R06.03 - ACUTE RESPIRATORY DISTRESS Status: Resolved Current Visit: Yes (4) Hypoxia SNOMED Code(s): 711597909 Code(s): R09.02 - HYPOXEMIA Status: Chronic Current Visit: Yes (5) DNI (do not intubate) SNOMED Code(s): 126678861 Code(s): Z78.9 - OTHER SPECIFIED HEALTH STATUS Status: Acute Current Visit: Yes (6) DNR (do not resuscitate) Status: Acute Current Visit: Yes (7) Palliative care status SNOMED Code(s): 311998086 Code(s): Z51.5 - ENCOUNTER FOR PALLIATIVE CARE Status: Acute Current Visit: Yes (8) CO2 retention SNOMED Code(s): 37784280 Code(s): E87.2 - ACIDOSIS Status: Chronic Current Visit: Yes (9) Venous stasis of both lower extremities SNOMED Code(s): 195367089 Code(s): I87.8 - OTHER SPECIFIED DISORDERS OF VEINS Status: Chronic Current Visit: Yes (10) Morbid exogenous obesity SNOMED Code(s): 981558093 Code(s): E66.01 - MORBID (SEVERE) OBESITY DUE TO EXCESS CALORIES Status: Chronic Current Visit: Yes - Problem List Review Problem List Initiated/Reviewed/Updated: Yes - My Orders Last 24 Hours: My Active Orders 10/24/17 15:12 IS (RT) [RT Incentive Spirometry] [RC] Q2HWA 10/24/17 16:00 Albuterol/Ipratropium [DuoNeb 3.0-0.5 MG/3 ML] 3 ml NEB QIDRT 10/25/17 10:01 PT Evaluation and Treatment [CONS] Routine 10/25/17 10:02 OT Evaluation and Treatment [CONS] Routine 10/26/17 05:11 BASIC METABOLIC PANEL,BMP [CHEM] AM CBC WITH AUTO DIFF [HEME] AM 10/26/17 08:00 Echo Comp wo Cont [US] Routine - Assessment Assessment:: Please see above - Plan Plan:: Very complicated patient with several comorbidities resulting in a poor to fair prognosis. He has restrictive and obstructive COPD and would be a difficult intubation. He is obviously a chronic CO2 retainer so will need to be cautious with regards to keeping his sats no higher than 93% but also monitoring his work of breathing. We are continuing to wean him down from 2 L of oxygen to RA keeping and his respiratory rate 18-22. ABG shows some improvement. He is on DuoNeb 4 times a day, incentive spirometry every 2 hours while awake sputum culture pending. head of his bed elevated, IV steroids will be tapered down for acute COPD exacerbation. continue with IV Rocephin and azithromycin for clinical signs of pneumonia, as well as covering cellulitis of left lower extremity not at risk for MRSA. ulceration covered with bacitracin and looks good. continue to elevate the lower extremities while sitting up and walking and aces can come off at night. Try to get an echocardiogram on Thursday. He'll continue his home lisinopril. Getting Lovenox injections to prevent DVTs. blood sugars are good and A1c 5.5 so will cut his accu checks to bid. He will definitely need home health upon discharge regarding ADLs especially of the lower extremities. We'll likely need home O2 as well. Pulmonary status is guarded. We'll continue to treat his comorbidities appropriately and any medication changes will be documented in the chart for outpatient follow-up. He will eventually need a sleep study PFTs. he remains DNI/DNR, and palliative care. He does agree to the above recommendations and plan of care in this acute setting. Anticipate discharge from inpatient 48-72h hours and possible need for swing bed status for continued PT/ OT assessments and treatment for ambulation mobility leg cares and safety assessment. This will require home health as well.
[2017-10-25] MEDS: cefTRIAXone 2 GM Vial IV SCH (20:02)
[2017-10-26] MEDS: Sodium Chloride 0.9% 10 ML Syringe FLUSH PRN ×3 (01:21→08:33)
[2017-10-26] MEDS: methylPREDNISolone Sodium Succinate 125 MG/2 ML SDV IVPUSH SCH (01:21)
[2017-10-26] MEDS: Albuterol 0.083% 2.5 MG/3 ML Neb Soln NEB PRN (02:50)
[2017-10-26] MEDS: Albuterol/Ipratropium 3.0-0.5 MG/3 ML Neb Soln NEB SCH ×4 (07:17→21:10)
[2017-10-26] MEDS: Hydrochlorothiazide/Lisinopril 12.5-10 MG Tab PO SCH (09:48)
[2017-10-26] MEDS: predniSONE 20 MG Tab PO SCH (09:48)
--- NOTE | 2017-10-26 10:46 | PCM.PN ---
- General Info Date of Service: 10/26/17 - Patient Data Vitals - Most Recent: Last Vital Signs Temp 98.5 F 10/26/17 08:45 Pulse 96 10/26/17 08:45 Resp 18 10/26/17 08:45 BP 150/81 H 10/26/17 09:48 Pulse Ox 88 L 10/26/17 08:45 Weight - Most Recent: 130.997 kg I&O - Last 24 Hours: Intake & Output 10/25/17 10/26/17 10/26/17 22:59 06:59 14:59 Intake Total 200 400 Output Total 0 Balance 200 400 Lab Results Last 24 Hours: Laboratory Results - last 24 hr 10/25/17 10/25/17 10/26/17 Range/Units 11:18 17:23 06:13 WBC 12.4 H (4.5-12.0) X10-3/uL RBC 5.32 (4.30-5.75) x10(6)uL Hgb 16.1 H (11.5-15.5) g/dL Hct 49.1 (30.0-51.3) % MCV 92.2 (80-96) fL MCH 30.2 (27.7-33.6) pg MCHC 32.8 (32.2-35.4) g/dL RDW 14.1 (11.5-15.5) % Plt Count 266 (125-369) X10(3)uL MPV 7.9 (7.4-10.4) fL Add Manual Diff Yes Neutrophils % (Manual) 82 (46-82) % Band Neutrophils % 4 (0-6) % Lymphocytes % (Manual) 10 L (13-37) % Monocytes % (Manual) 4 (4-12) % Sodium (135-145) mmol/L Potassium (3.5-5.3) mmol/L Chloride (100-110) mmol/L Carbon Dioxide (21-32) mmol/L BUN (7-18) mg/dL Creatinine (0.70-1.30) mg/dL Est Cr Clr Drug Dosing mL/min Estimated GFR (MDRD) (>60) BUN/Creatinine Ratio (9-20) Glucose (80-116) mg/dL POC Glucose 138 H 133 H (80-116) mg/dL Calcium (8.6-10.2) mg/dL 10/26/17 Range/Units 06:13 WBC (4.5-12.0) X10-3/uL RBC (4.30-5.75) x10(6)uL Hgb (11.5-15.5) g/dL Hct (30.0-51.3) % MCV (80-96) fL MCH (27.7-33.6) pg MCHC (32.2-35.4) g/dL RDW (11.5-15.5) % Plt Count (125-369) X10(3)uL MPV (7.4-10.4) fL Add Manual Diff Neutrophils % (Manual) (46-82) % Band Neutrophils % (0-6) % Lymphocytes % (Manual) (13-37) % Monocytes % (Manual) (4-12) % Sodium 141 (135-145) mmol/L Potassium 4.0 (3.5-5.3) mmol/L Chloride 102 (100-110) mmol/L Carbon Dioxide 30 (21-32) mmol/L BUN 39 H (7-18) mg/dL Creatinine 1.2 (0.70-1.30) mg/dL Est Cr Clr Drug Dosing 55.76 mL/min Estimated GFR (MDRD) 59 L (>60) BUN/Creatinine Ratio 32.5 H (9-20) Glucose 140 H (80-116) mg/dL POC Glucose (80-116) mg/dL Calcium 9.2 (8.6-10.2) mg/dL [place] Results Last 24 Hours: Microbiology 10/23/17 17:30 Gram Stain - Final Sputum - Expectorated Sputum Culture - Final Normal [facility] Med Orders - Current: Current Medications Albuterol (Proventil Neb Soln) 2.5 mg NEB Q4H PRN PRN Reason: sob Last Admin: 10/26/17 02:50 Dose: 2.5 mg Albuterol/Ipratropium (Duoneb 3.0-0.5 Mg/3 Ml) 3 ml NEB QIDRT [facility] Last Admin: 10/26/17 07:17 Dose: 3 ml Amoxicillin/Clavulanate Potassium (Augmentin 875 Mg/125 Mg) 1 tab PO BID [facility] Lisinopril/HCTZ (Lisinopril/Hctz 10-12.5 Mg) 1 tab PO DAILY [facility] Last Admin: 10/26/17 09:48 Dose: 1 tab Prednisone (Prednisone) 60 mg PO WITHBREAKFAST [facility] Last Admin: 10/26/17 09:48 Dose: 60 mg Sodium Chloride (Saline Flush) 10 ml FLUSH ASDIRECTED PRN PRN Reason: Keep Vein Open Last Admin: 10/26/17 08:33 Dose: 10 ml Discontinued Medications Albuterol/Ipratropium (Duoneb 3.0-0.5 Mg/3 Ml) 3 ml NEB ONETIME ONE Stop: 10/22/17 15:58 Last Admin: 10/22/17 16:56 Dose: 3 ml Ceftriaxone Sodium (Rocephin) 1,000 mg IV Q24H [facility] Last Admin: 10/22/17 20:09 Dose: 1,000 mg Ceftriaxone Sodium (Rocephin) 2 gm IV Q24H [facility] Last Admin: 10/25/17 20:02 Dose: 2 gm Ceftriaxone Sodium (Rocephin) 1,000 mg IV ONETIME ONE Stop: 10/23/17 10:01 Last Admin: 10/23/17 10:46 Dose: 1,000 mg Furosemide (Lasix) 40 mg IVPUSH NOW ONE Stop: 10/23/17 12:20 Last Admin: 10/23/17 13:26 Dose: 40 mg Ceftriaxone Sodium 1,000 mg/ (Sodium Chloride) 50 mls @ 100 mls/hr IV Q24H [facility] Last Admin: 10/22/17 21:19 Dose: Not Given Azithromycin 500 mg/ Sodium (Chloride) 250 mls @ 250 mls/hr IV Q24H [facility] Stop: 10/27/17 13:29 Last Admin: 10/25/17 12:52 Dose: 250 mls/hr Insulin Aspart (Novolog) 0 unit SUBCUT TIDMEALS [facility] PRN Reason: Protocol Last Admin: 10/25/17 17:24 Dose: Not Given Methylprednisolone Sodium Succinate (Solu-Medrol) 125 mg IVPUSH ONETIME ONE Stop: 10/22/17 15:58 Last Admin: 10/22/17 16:54 Dose: 125 mg Methylprednisolone Sodium Succinate (Solu-Medrol) 125 mg IVPUSH Q8H [facility] Last Admin: 10/22/17 18:46 Dose: Not Given Methylprednisolone Sodium Succinate (Solu-Medrol) 125 mg IVPUSH Q8H [facility] Last Admin: 10/26/17 01:21 Dose: 125 mg - Problem List & Annotations (1) Acute respiratory distress SNOMED Code(s): 043056287 Code(s): R06.03 - ACUTE RESPIRATORY DISTRESS Status: Acute Current Visit : Yes (2) Hypoxia SNOMED Code(s): 627922921 Code(s): R09.02 - HYPOXEMIA Status: Acute Current Visit: Yes (3) COPD with acute exacerbation SNOMED Code(s): 799342948 Code(s): J44.1 - CHRONIC OBSTRUCTIVE PULMONARY DISEASE W (ACUTE) EXACERBATION Status: Acute Current Visit: Yes (4) Cellulitis of left lower leg SNOMED Code(s): 791660122 Code(s): L03.116 - CELLULITIS OF LEFT LOWER LIMB Status: Acute Current Visit: Yes (5) DNI (do not intubate) SNOMED Code(s): 964439767 Code(s): Z78.9 - OTHER SPECIFIED HEALTH STATUS Status: Acute Current Visit: Yes (6) DNR (do not resuscitate) Status: Acute Current Visit: Yes (7) Palliative care status SNOMED Code(s): 445472207 Code(s): Z51.5 - ENCOUNTER FOR PALLIATIVE CARE Status: Acute Current Visit: Yes (8) CO2 retention SNOMED Code(s): 05260678 Code(s): E87.2 - ACIDOSIS Status: Chronic Current Visit: Yes (9) Venous stasis of both lower extremities SNOMED Code(s): 688209007 Code(s): I87.8 - OTHER SPECIFIED DISORDERS OF VEINS Status: Chronic Current Visit: Yes (10) Morbid exogenous obesity SNOMED Code(s): 678575063 Code(s): E66.01 - MORBID (SEVERE) OBESITY DUE TO EXCESS CALORIES Status: Chronic Current Visit: Yes - My Orders Last 24 Hours: My Active Orders 10/25/17 10:01 PT Evaluation and Treatment [CONS] Routine 10/25/17 10:02 OT Evaluation and Treatment [CONS] Routine 10/26/17 07:00 Glucose [Blood Glucose Check, Bedside] [RC] DAILY 10/26/17 09:30 predniSONE 60 mg PO WITHBREAKFAST 10/26/17 10:39 Evaluate for Home Oxygen [RT Oxygen Therapy w/Exercise] [RC] ASDIRECTED Consult to Home Health [CONS] Routine 10/26/17 10:43 Consult to Provider Service Representative [CONS] Routine 10/26/17 10:45 Amoxicillin/Clavulanate K [Augmentin 875 MG/125 MG] 1 tab PO Q12HR 10/27/17 08:00 Echo Comp wo Cont [US] Routine - Plan Plan:: Very complicated patient with several comorbidities resulting in a poor prognosis should he not return corner in the next day or so. He has restrictive and obstructive COPD and would be a difficult intubation. He is obviously a chronic CO2 retainer so will need to be cautious with regards to keeping his sats no higher than 93% but also monitoring his work of breathing. ABG to assess current status. Like him moved to an ICU bed but will not keep him ICU status. Will continuous oxygen saturation. Will start him on DuoNeb 4 times a day, incentive spirometry every 2 hours while awake attempt to get a sputum culture, we'll keep the head of his bed elevated, starting IV steroids for acute COPD exacerbation along with IV Rocephin and azithromycin for clinical signs of pneumonia, as well as help cover cellulitis of lower extremity. I will also get a uric acid level. Will have his ulceration covered with bacitracin of the toe and also place 2 x 2's between each digits. Will elevate the left lower extremity and also gentle Blu wraps to bilateral lower extremities. For added dose of Lasix trying to take some fluid off. We'll monitor his output. Try to get an echocardiogram on Thursday. He'll continue his home lisinopril. He will get therapeutic Lovenox injections to prevent DVTs. He will definitely need home health upon discharge regarding ADLs especially of the lower extremities. We'll likely need home O2 as well. Pulmonary status is guarded. I did discuss with him in detail that with this increased work of breathing high levels of O2 he may need to be converted to Ventimask versus BiPAP versus intubation and mechanical ventilation. He denied wanting any intubation or mechanical ventilation. I also informed him that the stress of his heart could possibly lead to failure, blocks or potential asystole at which point he was require cardiac resuscitation possibly in the form mechanical chest compressions cardiac defibrillation, which he indicates he would not want this should this need to be performed. We'll continue to treat his comorbidities appropriately and any medication changes will be documented in the chart for outpatient follow -up. He will eventually need a sleep study. In discussion with him he will be DNI/DNR, and palliative care. He does agree to the above recommendations and plan of care in this acute setting. Anticipate discharge from inpatient greater than 72 hours and possible need for swing bed status for continued PT OT assessments and treatment for ambulation mobility leg cares and safety assessment. This will require home health as well.
[2017-10-26] MEDS ORDERED: Acetaminophen/HYDROcodone 325-5 MG Tab PO PRN (11:33)
[2017-10-26] MEDS ORDERED: Acetaminophen 500 MG Tab PO PRN (11:34)
[2017-10-26] MEDS ORDERED: Acetaminophen/HYDROcodone 325-5 MG Tab PO ONE (11:38)
--- NOTE | 2017-10-26 11:39 | PCM.PN ---
- General Info Date of Service: 10/26/17 Subjective Update: 72-year-old male admitted for COPD exacerbation, chronic lower extremity edema with acute onset left leg cellulitis on continuous oxygen saturation monitoring secondary to hypoxia and respiratory distress he is alert and awake and in bed with JACQUELIN wraps off for exam. he tolerates these well when on. He has no complaints today and admits his breathing is a better. Cough is loosening. He's had no choking with intake. Pain in his left leg and foot is better prior to admission especially with short walks to the bathroom however he does admit pain along the foot and calf area with walking and to palpation. Would like something for this if possible. Functional Status:Tolerating Diet, Ambulating, Urinating (Incontinent of urine but making several significantly wet diapers and intermittent stools.), Incentive Spirometry volumes 700. Nursing denies any events overnight - Review of Systems Systems Review Comment:: General: Reports: Weakness, Fatigue improving. would like to walk a it more. HEENT: Denies: Headaches, Sore Throat Pulmonary: Reports: Shortness of Breath, Cough, Sputum loosening up. Denies orthopnea Cardiovascular: Reports: Dyspnea on Exertion, Edema improving. Denies: Chest Pain, Palpitations, Lightheadedness Gastrointestinal: Reports: No Symptoms Genitourinary: Reports: Incontinence. Denies: Dysuria, Hematuria, Flank Pain Musculoskeletal: Reports: Leg Pain now to the calf Joint Swelling but reducing. Skin: Reports: Dryness (Legs bilaterally) just started adding lotion to skin bid. Neurological: Reports: Difficulty Walking. Denies: Numbness, Tingling, Trouble Speaking, Change in Speech Psychiatric: Reports: No Symptoms - Patient Data Vitals - Most Recent: Last Vital Signs Temp 98.5 F 10/26/17 08:45 Pulse 76 10/26/17 11:05 Resp 18 10/26/17 08:45 BP 150/81 H 10/26/17 09:48 Pulse Ox 93 L 10/26/17 11:05 Weight - Most Recent: 130.997 kg I&O - Last 24 Hours: Intake & Output 10/25/17 10/26/17 10/26/17 22:59 06:59 14:59 Intake Total 200 400 Output Total 0 Balance 200 400 Lab Results Last 24 Hours: Laboratory Results - last 24 hr 10/25/17 10/26/17 10/26/17 Range/Units 17:23 06:13 06:13 WBC 12.4 H (4.5-12.0) X10-3/uL RBC 5.32 (4.30-5.75) x10(6)uL Hgb 16.1 H (11.5-15.5) g/dL Hct 49.1 (30.0-51.3) % MCV 92.2 (80-96) fL MCH 30.2 (27.7-33.6) pg MCHC 32.8 (32.2-35.4) g/dL RDW 14.1 (11.5-15.5) % Plt Count 266 (125-369) X10(3)uL MPV 7.9 (7.4-10.4) fL Add Manual Diff Yes Neutrophils % (Manual) 82 (46-82) % Band Neutrophils % 4 (0-6) % Lymphocytes % (Manual) 10 L (13-37) % Monocytes % (Manual) 4 (4-12) % Sodium 141 (135-145) mmol/L Potassium 4.0 (3.5-5.3) mmol/L Chloride 102 (100-110) mmol/L Carbon Dioxide 30 (21-32) mmol/L BUN 39 H (7-18) mg/dL Creatinine 1.2 (0.70-1.30) mg/dL Est Cr Clr Drug Dosing 55.76 mL/min Estimated GFR (MDRD) 59 L (>60) BUN/Creatinine Ratio 32.5 H (9-20) Glucose 140 H (80-116) mg/dL POC Glucose 133 H (80-116) mg/dL Calcium 9.2 (8.6-10.2) mg/dL [place] Results Last 24 Hours: 10/22/17 17:55 Blood Aerobic Blood Culture - Preliminary NO GROWTH AFTER 3 DAYS 10/22/17 17:55 Blood Anaerobic Blood Culture - Preliminary NO GROWTH AFTER 3 DAYS 10/22/17 17:50 Blood Aerobic Blood Culture - Preliminary NO GROWTH AFTER 3 DAYS 10/22/17 17:50 Blood Anaerobic Blood Culture - Preliminary NO GROWTH AFTER 3 DAYS 10/23/17 17:30 Sputum - Expectorated Gram Stain - Final 10/23/17 17:30 Sputum - Expectorated Sputum Culture - Final Normal Gee Med Orders - Current: Current Medications Acetaminophen (Tylenol Extra Strength) 1,000 mg PO Q6H PRN PRN Reason: left leg pain >3<5/10 Hydrocodone Bitart/Acetaminophen (Merkel 325-5 Mg) 1 tab PO Q4H PRN PRN Reason: left leg pain Albuterol (Proventil Neb Soln) 2.5 mg NEB Q4H PRN PRN Reason: sob Last Admin: 10/26/17 02:50 Dose: 2.5 mg Albuterol/Ipratropium (Duoneb 3.0-0.5 Mg/3 Ml) 3 ml NEB QIDRT [facility] Last Admin: 10/26/17 11:05 Dose: 3 ml Amoxicillin/Clavulanate Potassium (Augmentin 875 Mg/125 Mg) 1 tab PO BID [facility] Lisinopril/HCTZ (Lisinopril/Hctz 10-12.5 Mg) 1 tab PO DAILY [facility] Last Admin: 10/26/17 09:48 Dose: 1 tab Prednisone (Prednisone) 60 mg PO WITHBREAKFAST [facility] Last Admin: 10/26/17 09:48 Dose: 60 mg Sodium Chloride (Saline Flush) 10 ml FLUSH ASDIRECTED PRN PRN Reason: Keep Vein Open Last Admin: 10/26/17 08:33 Dose: 10 ml Discontinued Medications Albuterol/Ipratropium (Duoneb 3.0-0.5 Mg/3 Ml) 3 ml NEB ONETIME ONE Stop: 10/22/17 15:58 Last Admin: 10/22/17 16:56 Dose: 3 ml Ceftriaxone Sodium (Rocephin) 1,000 mg IV Q24H [facility] Last Admin: 10/22/17 20:09 Dose: 1,000 mg Ceftriaxone Sodium (Rocephin) 2 gm IV Q24H [facility] Last Admin: 10/25/17 20:02 Dose: 2 gm Ceftriaxone Sodium (Rocephin) 1,000 mg IV ONETIME ONE Stop: 10/23/17 10:01 Last Admin: 10/23/17 10:46 Dose: 1,000 mg Furosemide (Lasix) 40 mg IVPUSH NOW ONE Stop: 10/23/17 12:20 Last Admin: 10/23/17 13:26 Dose: 40 mg Ceftriaxone Sodium 1,000 mg/ (Sodium Chloride) 50 mls @ 100 mls/hr IV Q24H [facility] Last Admin: 10/22/17 21:19 Dose: Not Given Azithromycin 500 mg/ Sodium (Chloride) 250 mls @ 250 mls/hr IV Q24H [facility] Stop: 10/27/17 13:29 Last Admin: 10/25/17 12:52 Dose: 250 mls/hr Insulin Aspart (Novolog) 0 unit SUBCUT TIDMEALS [facility] PRN Reason: Protocol Last Admin: 10/25/17 17:24 Dose: Not Given Methylprednisolone Sodium Succinate (Solu-Medrol) 125 mg IVPUSH ONETIME ONE Stop: 10/22/17 15:58 Last Admin: 10/22/17 16:54 Dose: 125 mg Methylprednisolone Sodium Succinate (Solu-Medrol) 125 mg IVPUSH Q8H [facility] Last Admin: 10/22/17 18:46 Dose: Not Given Methylprednisolone Sodium Succinate (Solu-Medrol) 125 mg IVPUSH Q8H [facility] Last Admin: 10/26/17 01:21 Dose: 125 mg - Problem List & Annotations (1) COPD with acute exacerbation SNOMED Code(s): 456964385 Code(s): J44.1 - CHRONIC OBSTRUCTIVE PULMONARY DISEASE W (ACUTE) EXACERBATION Status: Acute Current Visit: Yes (2) Cellulitis of left lower leg SNOMED Code(s): 560790685 Code(s): L03.116 - CELLULITIS OF LEFT LOWER LIMB Status: Acute Current Visit: Yes (3) Acute respiratory distress SNOMED Code(s): 200343819 Code(s): R06.03 - ACUTE RESPIRATORY DISTRESS Status: Resolved Current Visit: Yes (4) Hypoxia SNOMED Code(s): 413678725 Code(s): R09.02 - HYPOXEMIA Status: Chronic Current Visit: Yes (5) DNI (do not intubate) SNOMED Code(s): 241556460 Code(s): Z78.9 - OTHER SPECIFIED HEALTH STATUS Status: Acute Current Visit: Yes (6) DNR (do not resuscitate) Status: Acute Current Visit: Yes (7) Palliative care status SNOMED Code(s): 107015158 Code(s): Z51.5 - ENCOUNTER FOR PALLIATIVE CARE Status: Acute Current Visit: Yes (8) CO2 retention SNOMED Code(s): 54092105 Code(s): E87.2 - ACIDOSIS Status: Chronic Current Visit: Yes (9) Venous stasis of both lower extremities SNOMED Code(s): 368871141 Code(s): I87.8 - OTHER SPECIFIED DISORDERS OF VEINS Status: Chronic Current Visit: Yes (10) Morbid exogenous obesity SNOMED Code(s): 882215110 Code(s): E66.01 - MORBID (SEVERE) OBESITY DUE TO EXCESS CALORIES Status: Chronic Current Visit: Yes - Problem List Review Problem List Initiated/Reviewed/Updated: Yes - My Orders Last 24 Hours: My Active Orders 10/26/17 07:00 Glucose [Blood Glucose Check, Bedside] [] DAILY 10/26/17 09:30 predniSONE 60 mg PO WITHBREAKFAST 10/26/17 10:39 Evaluate for Home Oxygen [RT Oxygen Therapy w/Exercise] [RC] ASDIRECTED Consult to Home Health [CONS] Routine 10/26/17 10:43 Consult to [employer] [CONS] Routine 10/26/17 10:45 Amoxicillin/Clavulanate K [Augmentin 875 MG/125 MG] 1 tab PO BID 10/26/17 11:33 Acetaminophen/HYDROcodone [Merkel 325-5 MG] 1 tab PO Q4H PRN 10/26/17 11:34 Acetaminophen [Tylenol Extra Strength] 1,000 mg PO Q6H PRN 10/26/17 11:38 Acetaminophen/HYDROcodone [Merkel 325-5 MG] 1 tab PO ONETIME ONE 10/27/17 08:00 Echo Comp wo Cont [US] Routine VL Duplex Lwr Ext Veins Comp [US] Routine - Assessment Assessment:: Please see above - Plan Plan:: Very complicated patient with several comorbidities resulting in a poor to fair prognosis. He has restrictive and obstructive COPD and would be a difficult intubation. He is obviously a chronic CO2 retainer so will need to be cautious with regards to keeping his sats no higher than 93% but also monitoring his work of breathing. We are continuing to wean him down from 2 L of oxygen to RA keeping and his respiratory rate 18-22. No events overnight. He is remains afebrile greater than 72 hours. His white count is improving. Electrolyte renal function look good.good urine output. Incentive spirometry going well. He is on DuoNeb 4 times a day, incentive spirometry every 2 hours while awake sputum culture shows mixed normal gee. head of his bed elevated, IV steroids will be tapered down for acute COPD exacerbation. I'll go and switches over to by mouth today. continue with IV Rocephin and azithromycin for clinical signs of pneumonia, as well as covering cellulitis of left lower extremity not at risk for MRSA. I think he is appropriate to switch these over to Augmentin. ulceration covered with bacitracin and looks good. He is showing some increased tenderness to the calf supple ahead and rule out acute onset DVT with duplex ultrasound. continue to elevate the lower extremities while sitting up and walking and aces can come off at night. echocardiogram scheduled for tomorrow morning. Getting Lovenox injections to prevent DVTs. blood sugars are good and A1c 5.5 so will cut his accu checks to bid. He'll continue his home lisinopril. PT OT working with him today.He will definitely need home health upon discharge regarding ADLs especially of the lower extremities. We'll likely need home O2 as well. Pulmonary status is guarded. We'll continue to treat his comorbidities appropriately and any medication changes will be documented in the chart for outpatient follow-up. He will eventually need a sleep study and PFTs. he remains DNI/DNR, and palliative care. He does agree to the above recommendations and plan of care in this acute setting. Anticipate discharge from inpatient 24-48h hours and possible need for swing bed status for continued PT/ OT assessments and treatment for ambulation mobility leg cares and safety assessment. This will require home health as well.
[2017-10-26] MEDS: Amoxicillin/Clavulanate K 875-125 MG Tab PO SCH ×2 (12:21→21:10)
[2017-10-27] MEDS: Albuterol/Ipratropium 3.0-0.5 MG/3 ML Neb Soln NEB SCH ×4 (07:16→20:22)
[2017-10-27] MEDS: predniSONE 20 MG Tab PO SCH (07:56)
[2017-10-27] MEDS: Amoxicillin/Clavulanate K 875-125 MG Tab PO SCH ×2 (08:01→20:21)
[2017-10-27] MEDS: Hydrochlorothiazide/Lisinopril 12.5-10 MG Tab PO SCH (09:47)
--- NOTE | 2017-10-27 11:07 | PCM.DCSUM1 ---
Discharge Summary - Hospital Course HPI Initial Comments: Pleasant 72-year-old male came in after falling in his home due to pain and swelling in the left lower extremity. He lives home alone. Otherwise ambulatory. He had also been noticing increased dyspnea with exertion and cough and change in sputum production having known COPD not-oxygen dependent. - Discharge Data Discharge Date: 10/28/17 Discharge Disposition: Home, W Home Health Agency 06 Condition: Fair - Discharge Diagnosis/Problem(s) (1) COPD with acute exacerbation SNOMED Code(s): 609674441 ICD Code: J44.1 - CHRONIC OBSTRUCTIVE PULMONARY DISEASE W (ACUTE) EXACERBATION Status: Acute Current Visit: Yes (2) Cellulitis of left lower leg SNOMED Code(s): 497613771 ICD Code: L03.116 - CELLULITIS OF LEFT LOWER LIMB Status: Acute Current Visit: Yes (3) Acute respiratory distress SNOMED Code(s): 094278904 ICD Code: R06.03 - ACUTE RESPIRATORY DISTRESS Status: Resolved Current Visit: Yes (4) Hypoxia SNOMED Code(s): 072164947 ICD Code: R09.02 - HYPOXEMIA Status: Chronic Current Visit: Yes (5) DNI (do not intubate) SNOMED Code(s): 151158028 ICD Code: Z78.9 - OTHER SPECIFIED HEALTH STATUS Status: Acute Current Visit: Yes (6) DNR (do not resuscitate) Status: Acute Current Visit: Yes (7) Palliative care status SNOMED Code(s): 574206421 ICD Code: Z51.5 - ENCOUNTER FOR PALLIATIVE CARE Status: Acute Current Visit: Yes (8) CO2 retention SNOMED Code(s): 54628026 ICD Code: E87.2 - ACIDOSIS Status: Chronic Current Visit: Yes (9) Venous stasis of both lower extremities SNOMED Code(s): 943648183 ICD Code: I87.8 - OTHER SPECIFIED DISORDERS OF VEINS Status: Chronic Current Visit: Yes (10) Morbid exogenous obesity SNOMED Code(s): 560258924 ICD Code: E66.01 - MORBID (SEVERE) OBESITY DUE TO EXCESS CALORIES Status: Chronic Current Visit: Yes (11) Dependence on supplemental oxygen when ambulating SNOMED Code(s): 26966233571783 ICD Code: Z99.81 - DEPENDENCE ON SUPPLEMENTAL OXYGEN Status: Acute Current Visit: Yes (12) Need for home health care SNOMED Code(s): 393172382 ICD Code: Z74.2 - NEED FOR ASSIST AT HOME & NO HOUSE MEMB ABLE TO RENDER CARE Status: Acute Current Visit: Yes (13) COPD (chronic obstructive pulmonary disease) SNOMED Code(s): 94694912 ICD Code: J44.9 - CHRONIC OBSTRUCTIVE PULMONARY DISEASE, UNSPECIFIED Status : Chronic Current Visit: No Qualifiers: COPD type: chronic bronchitis Chronic bronchitis type: unspecified Qualified Code(s): J42 - Unspecified chronic bronchitis - Patient Summary/Data Consults: Consultations 10/25/17 10:01 PT Evaluation and Treatment [CONS] Routine Please Evaluate and Treat. PT Reason for Consult: Ambulation This query below is only for informational purposes and is not editable. Admission Diagnosis/Problem: COPD, Moderate chronic obstructive pulmonary disease 10/25/17 10:02 OT Evaluation and Treatment [CONS] Routine Please Evaluate and Treat. OT Reason for Consult: ADL's Special Instructions: leg/foot cares. This query below is only for informational purposes and is not editable. Admission Diagnosis/Problem: COPD, Moderate chronic obstructive pulmonary disease 10/26/17 10:39 Consult to Home Health [CONS] Routine Comment: Physician Instructions: Reason for Consult: Morbid obesity with inability to place Blu WRaps properly Special Instructions: safety assessment at home and medication management outpt. Patient is home bound secondary to above. assessment for home oxygen with activity. 10/26/17 10:43 Consult to Home Health [facility] [CONS] Routine Comment: Physician Instructions: Reason for Consult: home nebulizations needs daily. will need machine and med orders. Special Instructions: discharging with Duonebs qid x 7 days then to bid thereafter. Will need to determine transportation for his follow up appt with PCP post discharge. Recommended Follow-up Testing/Procedures: To recommend he has a sleep study as I do believe he has combined obstructive and likely central sleep apnea. I asked the recommend follow-up for PFTs. Follow -up with podiatry is also recommended secondary to his poor foot care and male dystrophia. Dietitian consult to see his morbid obesity. And possible ABIs to assess likely claudication with activity. Hospital Course: Admitted for acute treatment of COPD exacerbation with pneumonia respiratory failure and distress complicated by acute left lower extremity cellulitis new- onset, and worsening acute on chronic bilateral lymphedema. He was started on IV antibiotics, intermittent diuretic, respiratory cares regarding DuoNeb, oxygen therapy which has been determined he qualifies for portable oxygen as he does desat down to the mid 80s during activity, incentive spirometry will continue in his volumes improved. Blu wraps lower extremities as well as antibiotics have significantly improved his lower extremity edema and resolving lower extremity cellulitis. Continues to have some swelling at the ankle which physical therapy will continue to work with, home with ambulation and weightbearing. Pain is controlled. Overall well-being is improved but he will need to be closely monitored with his home situation as well as outpatient management for his chronic comorbidities. - Patient Instructions Diet: Heart Healthy Diet, No Alcoholic Beverages Activity: As Tolerated, Cough & Deep Breathe, Elevate Extremity, Full Weight Bearing Activity, Other: STop smoking Driving: Do Not Drive Showering/Bathing: May Shower Notify Provider of: Fever, Increased Pain, Swelling and Redness, Drainage, Nausea and/or Vomiting - Discharge Plan Prescriptions/Med Rec: Acetaminophen/HYDROcodone [[place] 325-5 MG] 1 tab PO Q4H PRN #30 tablet PRN Reason: left leg pain-Temporary Albuterol/Ipratropium [DuoNeb 3.0-0.5 MG/3 ML] 3 ml NEB QID #120 neb Amoxicillin/Clavulanate K [Augmentin 875-125 MG] 1 tab PO BID #10 tablet Lisinopril/Hydrochlorothiazide [Lisinopril-Hctz 10-12.5 mg Tab] 1 tab PO DAILY # 30 tablet predniSONE [Prednisone] See Taper PO WITHBREAKFAST #30 tablet Home Medications: Home Meds Albuterol Sulfate [Ventolin Hfa] 2 puff PO ASDIRECTED PRN 10/22/17 [History] Acetaminophen [Tylenol Extra Strength] 1,000 mg PO Q6H PRN tablet 10/28/17 [Rx] Acetaminophen/HYDROcodone [[place] 325-5 MG] 1 tab PO Q4H PRN #30 tablet 10/28/17 [Rx] Albuterol/Ipratropium [Combivent Respimat] 2 puff PO Q4H PRN #1 10/28/17 [Rx] Albuterol/Ipratropium [DuoNeb 3.0-0.5 MG/3 ML] 3 ml NEB QID #120 neb 10/28/17 [ Rx] Amoxicillin/Clavulanate K [Augmentin 875-125 MG] 1 tab PO BID #10 tablet [Rx] Lisinopril/Hydrochlorothiazide [Lisinopril-Hctz 10-12.5 mg Tab] 1 tab PO DAILY # 30 tablet 10/28/17 [Rx] predniSONE [Prednisone] See Taper PO WITHBREAKFAST #30 tablet 10/28/17 [Rx] Patient Handouts: Amoxicillin; Clavulanic Acid tablets Referrals: Isela Fabian, DIRECTOR OF MATERIALS MANAGEMENT [Primary Care Provider] - (Is to follow up with Dr. Yareli MD [facility]. ) - Discharge Summary/Plan Comment DC Time >30 min.: Yes Discharge Summary/Plan Comment: He knows he has been set up with home health for medication management, lower extremity cares regarding Blu wraps and foot cares, [employer] for home oxygen portability as he does qualify, he will continue to need PT OT due to his recent fall and increased risk of fall secondary to resolving lower leg cellulitis. Home safety measures will need to be evaluated. He will also be getting DuoNeb's and incentive spirometry at home. He will follow closely with his PCP which is already scheduled. He will continue his oral antibiotics, and education regarding tobacco cessation. Home health also includes dietary teaching and modification. As well as daily weights as able. After discussing this with him he is in agreement with the above plan of care. - General Info Date of Service: 10/28/17 Subjective Update: Functional Status: Reports: Pain Controlled, Tolerating Diet, Ambulating, Urinating, Incentive Spirometry. He is lying in bed with his legs unwrapped. Tells me he's feeling much better and is ready to go home. His breathing is unlabored. He has good color to the skin. He denies any difficulty with breathing, wheezing, shortness of breath or headache. He denies any chest pain or pressure. He admits that his left leg feels much better. Still hurts to walk on but getting better. He admits to significant improvement in the redness and swelling. Yesterday's ultrasound was negative for DVT. Echocardiogram performed yesterday also pending interpretation. - Review of Systems Systems Review Comment: see subj - Patient Data Vitals - Most Recent: Last Vital Signs Vital Signs (72 hours) 10/24/17 10/24/17 10/24/17 13:00 15:39 16:00 Temperature [ 97.9 F 97.8 F Oral] Pulse, 99 114 H Peripheral [ Pulse Oximetry] Respiratory 24 H 17 Rate Blood Pressure Blood Pressure [Left Lower Arm ] Blood Pressure 134/80 114/74 [Left Upper Arm ] Blood Pressure [Right Upper Arm] O2 Sat by Pulse 91 L 90 L Oximetry O2 Sat by Pulse 94 L Oximetry [ Nasal Cannula] O2 Sat by Pulse Oximetry [Room Air] 10/24/17 10/24/17 10/24/17 16:58 17:00 17:05 Temperature [ Oral] Pulse, Peripheral [ Pulse Oximetry] Respiratory Rate Blood Pressure Blood Pressure [Left Lower Arm ] Blood Pressure [Left Upper Arm ] Blood Pressure [Right Upper Arm] O2 Sat by Pulse Oximetry O2 Sat by Pulse 90 L 90 L 95 Oximetry [ Nasal Cannula] O2 Sat by Pulse Oximetry [Room Air] 10/24/17 10/24/17 10/24/17 19:15 19:20 20:41 Temperature [ 98.0 F Oral] Pulse, 82 92 Peripheral [ Pulse Oximetry] Respiratory 18 Rate Blood Pressure Blood Pressure [Left Lower Arm ] Blood Pressure 109/63 [Left Upper Arm ] Blood Pressure [Right Upper Arm] O2 Sat by Pulse 97 Oximetry O2 Sat by Pulse 97 92 L Oximetry [ Nasal Cannula] O2 Sat by Pulse Oximetry [Room Air] 10/25/17 10/25/17 10/25/17 00:45 01:57 04:00 Temperature [ 96.9 F Oral] Pulse, 72 79 Peripheral [ Pulse Oximetry] Respiratory 19 20 Rate Blood Pressure Blood Pressure [Left Lower Arm ] Blood Pressure [Left Upper Arm ] Blood Pressure 131/85 [Right Upper Arm] O2 Sat by Pulse 91 L 89 L Oximetry O2 Sat by Pulse 86 L Oximetry [ Nasal Cannula] O2 Sat by Pulse Oximetry [Room Air] 10/25/17 10/25/17 10/25/17 08:00 08:10 08:33 Temperature [ 97.8 F Oral] Pulse, 90 80 Peripheral [ Pulse Oximetry] Respiratory 20 Rate Blood Pressure 120/62 Blood Pressure [Left Lower Arm ] Blood Pressure [Left Upper Arm ] Blood Pressure 120/62 [Right Upper Arm] O2 Sat by Pulse 89 L Oximetry O2 Sat by Pulse 93 L Oximetry [ Nasal Cannula] O2 Sat by Pulse Oximetry [Room Air] 10/25/17 10/25/17 10/25/17 11:22 12:00 15:58 Temperature [ 98.2 F Oral] Pulse, 88 90 88 Peripheral [ Pulse Oximetry] Respiratory 18 Rate Blood Pressure Blood Pressure [Left Lower Arm ] Blood Pressure [Left Upper Arm ] Blood Pressure 122/58 L [Right Upper Arm] O2 Sat by Pulse 93 L Oximetry O2 Sat by Pulse 94 L 94 L Oximetry [ Nasal Cannula] O2 Sat by Pulse Oximetry [Room Air] 10/25/17 10/25/17 10/25/17 16:00 19:00 20:15 Temperature [ 97.6 F 97.8 F Oral] Pulse, 85 92 Peripheral [ Pulse Oximetry] Respiratory 20 20 Rate Blood Pressure Blood Pressure 139/77 [Left Lower Arm ] Blood Pressure [Left Upper Arm ] Blood Pressure 120/65 [Right Upper Arm] O2 Sat by Pulse 91 L 92 L Oximetry O2 Sat by Pulse 95 Oximetry [ Nasal Cannula] O2 Sat by Pulse Oximetry [Room Air] 10/25/17 10/25/17 10/25/17 20:20 21:00 23:45 Temperature [ 99 F Oral] Pulse, 90 Peripheral [ Pulse Oximetry] Respiratory 20 Rate Blood Pressure Blood Pressure [Left Lower Arm ] Blood Pressure [Left Upper Arm ] Blood Pressure 133/77 [Right Upper Arm] O2 Sat by Pulse 94 L Oximetry O2 Sat by Pulse 92 L 97 Oximetry [ Nasal Cannula] O2 Sat by Pulse Oximetry [Room Air] 10/26/17 10/26/17 10/26/17 03:21 04:00 07:18 Temperature [ Oral] Pulse, 85 74 Peripheral [ Pulse Oximetry] Respiratory 18 Rate Blood Pressure Blood Pressure [Left Lower Arm ] Blood Pressure [Left Upper Arm ] Blood Pressure [Right Upper Arm] O2 Sat by Pulse 91 L Oximetry O2 Sat by Pulse 92 L Oximetry [ Nasal Cannula] O2 Sat by Pulse Oximetry [Room Air] 10/26/17 10/26/17 10/26/17 08:45 09:48 11:05 Temperature [ 98.5 F Oral] Pulse, 96 76 Peripheral [ Pulse Oximetry] Respiratory 18 Rate Blood Pressure 150/81 H Blood Pressure 150/81 H [Left Lower Arm ] Blood Pressure [Left Upper Arm ] Blood Pressure [Right Upper Arm] O2 Sat by Pulse 88 L Oximetry O2 Sat by Pulse Oximetry [ Nasal Cannula] O2 Sat by Pulse 93 L Oximetry [Room Air] 10/26/17 10/26/17 10/26/17 12:39 15:21 16:00 Temperature [ 97.8 F 97.5 F Oral] Pulse, 90 84 72 Peripheral [ Pulse Oximetry] Respiratory 20 18 Rate Blood Pressure Blood Pressure 141/81 H [Left Lower Arm ] Blood Pressure [Left Upper Arm ] Blood Pressure 136/78 [Right Upper Arm] O2 Sat by Pulse 92 L 91 L Oximetry O2 Sat by Pulse Oximetry [ Nasal Cannula] O2 Sat by Pulse 94 L Oximetry [Room Air] 10/26/17 10/27/17 10/27/17 19:57 01:35 04:00 Temperature [ 97.8 F 98 F 97.8 F Oral] Pulse, 91 91 86 Peripheral [ Pulse Oximetry] Respiratory 20 20 20 Rate Blood Pressure Blood Pressure 120/56 L 132/62 [Left Lower Arm ] Blood Pressure [Left Upper Arm ] Blood Pressure 155/87 H [Right Upper Arm] O2 Sat by Pulse 93 L 91 L 97 Oximetry O2 Sat by Pulse Oximetry [ Nasal Cannula] O2 Sat by Pulse Oximetry [Room Air] 10/27/17 10/27/17 10/27/17 07:30 07:45 09:47 Temperature [ 97.4 F Oral] Pulse, 72 73 Peripheral [ Pulse Oximetry] Respiratory 20 Rate Blood Pressure 144/77 H Blood Pressure 144/77 H [Left Lower Arm ] Blood Pressure [Left Upper Arm ] Blood Pressure [Right Upper Arm] O2 Sat by Pulse Oximetry O2 Sat by Pulse Oximetry [ Nasal Cannula] O2 Sat by Pulse 95 Oximetry [Room Air] Weight - Most Recent: 130.997 kg I&O - Last 24 hours: Intake & Output 10/25/17 10/26/17 10/27/17 06:59 06:59 06:59 Intake Total 342 432 7631 Output Total 0 0 1500 Balance 800 200 -340 Imaging Impressions - Last 24 hrs: 10/22/17 Cxr-copd/bilat lower lobe pneumonia 10/22/17 duplex us-left leg neg. 10/27/17 duplex us-left leg-neg 10/27/17 cardiac echocardiogram-report pending. Lab Results - Last 24 hrs: Laboratory Tests 10/22/17 10/22/17 10/22/17 Range/Units 16:25 16:25 16:25 WBC 15.9 H (4.5-12.0) X10-3/uL RBC 5.31 (4.30-5.75) x10(6)uL Hgb 16.4 H (11.5-15.5) g/dL Hct 49.0 (30.0-51.3) % MCV 92.3 (80-96) fL MCH 30.8 (27.7-33.6) pg MCHC 33.4 (32.2-35.4) g/dL RDW 14.2 (11.5-15.5) % Plt Count 243 (125-369) X10(3)uL MPV 7.8 (7.4-10.4) fL Neut % (Auto) 84.2 H (46-82) % Lymph % (Auto) 5.5 L (13-37) % [place] % (Auto) 8.1 (4-12) % Eos % (Auto) 0 L (1.0-5.0) % Baso % (Auto) 2 (0-2) % Neut # (Auto) 13.3 H (1.6-8.3) # Lymph # (Auto) 0.9 (0.6-5.0) # [place] # (Auto) 1.3 (0.0-1.3) # Eos # (Auto) 0.1 (0.0-0.8) # Baso # (Auto) 0.3 H (0.0-0.2) # Add Manual Diff Neutrophils % (Manual) (46-82) % Band Neutrophils % (0-6) % Lymphocytes % (Manual) (13-37) % Monocytes % (Manual) (4-12) % PT 13.2 H (8.7-11.1) INR 1.30 H (0.89-1.13) ABG pH (7.35-7.45) ABG pCO2 (35-45) mmHg ABG pO2 (83-108) mmHg ABG HCO3 (22-26) mmol/L ABG O2 Saturation (96-97) % ABG Base Excess (-2-2) Ponce Test O2 Delivery Device Sodium 141 (135-145) mmol/L Potassium 3.7 (3.5-5.3) mmol/L Chloride 103 (100-110) mmol/L Carbon Dioxide 30 (21-32) mmol/L BUN 16 (7-18) mg/dL Creatinine 1.2 (0.70-1.30) mg/dL Est Cr Clr Drug Dosing 55.76 mL/min Estimated GFR (MDRD) 59 L (>60) BUN/Creatinine Ratio 13.3 (9-20) Glucose 109 (80-116) mg/dL POC Glucose (80-116) mg/dL Hemoglobin A1c (4.5-6.2) % Lactic Acid (0.4-2.2) mmol/L Uric Acid (2.6-6.0) mg/dL Calcium 9.2 (8.6-10.2) mg/dL Total Bilirubin (0.1-1.3) mg/dL AST (5-25) IU/L ALT (12-36) U/L Alkaline Phosphatase (56-112) IU/L Troponin I (<0.017-0.056) ng/mL NT-Pro-B Natriuret Pep (<=125) pg/mL Total Protein (6.0-8.0) g/dL Albumin (3.2-4.6) g/dL Globulin g/dL Albumin/Globulin Ratio Urine Color (YELLOW) Urine Appearance (CLEAR) Urine pH (5.0-6.5) Ur Specific [place] (1.010-1.025) Urine Protein (NEGATIVE) mg/dL Urine Glucose (UA) (NEGATIVE) mg/dL Urine Ketones (NEGATIVE) mg/dL Urine Occult Blood (NEGATIVE) Urine Nitrite (NEGATIVE) Urine Bilirubin (NEGATIVE) Urine Urobilinogen (NEGATIVE) mg/dL Ur Leukocyte Esterase (NEGATIVE) Urine RBC (0) Urine WBC (0) Ur Squamous Epith Cells (NS,R,O) Amorphous Sediment Urine Bacteria (NS) 10/22/17 10/22/17 10/22/17 Range/Units 16:25 16:25 21:00 WBC (4.5-12.0) X10-3/uL RBC (4.30-5.75) x10(6)uL Hgb (11.5-15.5) g/dL Hct (30.0-51.3) % MCV (80-96) fL MCH (27.7-33.6) pg MCHC (32.2-35.4) g/dL RDW (11.5-15.5) % Plt Count (125-369) X10(3)uL MPV (7.4-10.4) fL Neut % (Auto) (46-82) % Lymph % (Auto) (13-37) % [place] % (Auto) (4-12) % Eos % (Auto) (1.0-5.0) % Baso % (Auto) (0-2) % Neut # (Auto) (1.6-8.3) # Lymph # (Auto) (0.6-5.0) # [place] # (Auto) (0.0-1.3) # Eos # (Auto) (0.0-0.8) # Baso # (Auto) (0.0-0.2) # Add Manual Diff Neutrophils % (Manual) (46-82) % Band Neutrophils % (0-6) % Lymphocytes % (Manual) (13-37) % Monocytes % (Manual) (4-12) % PT (8.7-11.1) INR (0.89-1.13) ABG pH (7.35-7.45) ABG pCO2 (35-45) mmHg ABG pO2 (83-108) mmHg ABG HCO3 (22-26) mmol/L ABG O2 Saturation (96-97) % ABG Base Excess (-2-2) Ponce Test O2 Delivery Device Sodium (135-145) mmol/L Potassium (3.5-5.3) mmol/L Chloride (100-110) mmol/L Carbon Dioxide (21-32) mmol/L BUN (7-18) mg/dL Creatinine (0.70-1.30) mg/dL Est Cr Clr Drug Dosing mL/min Estimated GFR (MDRD) (>60) BUN/Creatinine Ratio (9-20) Glucose (80-116) mg/dL POC Glucose (80-116) mg/dL Hemoglobin A1c (4.5-6.2) % Lactic Acid 2.0 (0.4-2.2) mmol/L Uric Acid (2.6-6.0) mg/dL Calcium (8.6-10.2) mg/dL Total Bilirubin (0.1-1.3) mg/dL AST (5-25) IU/L ALT (12-36) U/L Alkaline Phosphatase (56-112) IU/L Troponin I < 0.017 L (<0.017-0.056) ng/mL NT-Pro-B Natriuret Pep 145 H (<=125) pg/mL Total Protein (6.0-8.0) g/dL Albumin (3.2-4.6) g/dL Globulin g/dL Albumin/Globulin Ratio Urine Color Yellow (YELLOW) Urine Appearance Slightly cloudy (CLEAR) Urine pH 5.0 (5.0-6.5) Ur Specific [place] 1.020 (1.010-1.025) Urine Protein Negative (NEGATIVE) mg/dL Urine Glucose (UA) Normal (NEGATIVE) mg/dL Urine Ketones 15 H (NEGATIVE) mg/dL Urine Occult Blood Negative (NEGATIVE) Urine Nitrite Negative (NEGATIVE) Urine Bilirubin Negative (NEGATIVE) Urine Urobilinogen 1 H (NEGATIVE) mg/dL Ur Leukocyte Esterase Negative (NEGATIVE) Urine RBC 0-5 (0) Urine WBC 0-5 (0) Ur Squamous Epith Cells Few H (NS,R,O) Amorphous Sediment Few Urine Bacteria Few H (NS) 10/23/17 10/23/17 10/23/17 Range/Units 11:35 14:00 17:22 WBC (4.5-12.0) X10-3/uL RBC (4.30-5.75) x10(6)uL Hgb (11.5-15.5) g/dL Hct (30.0-51.3) % MCV (80-96) fL MCH (27.7-33.6) pg MCHC (32.2-35.4) g/dL RDW (11.5-15.5) % Plt Count (125-369) X10(3)uL MPV (7.4-10.4) fL Neut % (Auto) (46-82) % Lymph % (Auto) (13-37) % [place] % (Auto) (4-12) % Eos % (Auto) (1.0-5.0) % Baso % (Auto) (0-2) % Neut # (Auto) (1.6-8.3) # Lymph # (Auto) (0.6-5.0) # [place] # (Auto) (0.0-1.3) # Eos # (Auto) (0.0-0.8) # Baso # (Auto) (0.0-0.2) # Add Manual Diff Neutrophils % (Manual) (46-82) % Band Neutrophils % (0-6) % Lymphocytes % (Manual) (13-37) % Monocytes % (Manual) (4-12) % PT (8.7-11.1) INR (0.89-1.13) ABG pH 7.36 (7.35-7.45) ABG pCO2 49 H (35-45) mmHg ABG pO2 72 L (83-108) mmHg ABG HCO3 27 H (22-26) mmol/L ABG O2 Saturation 94 L (96-97) % ABG Base Excess 1.1 (-2-2) Ponce Test Passed O2 Delivery Device Nasal cannula Sodium (135-145) mmol/L Potassium (3.5-5.3) mmol/L Chloride (100-110) mmol/L Carbon Dioxide (21-32) mmol/L BUN (7-18) mg/dL Creatinine (0.70-1.30) mg/dL Est Cr Clr Drug Dosing mL/min Estimated GFR (MDRD) (>60) BUN/Creatinine Ratio (9-20) Glucose (80-116) mg/dL POC Glucose 113 (80-116) mg/dL Hemoglobin A1c (4.5-6.2) % Lactic Acid (0.4-2.2) mmol/L Uric Acid 7.8 H (2.6-6.0) mg/dL Calcium (8.6-10.2) mg/dL Total Bilirubin (0.1-1.3) mg/dL AST (5-25) IU/L ALT (12-36) U/L Alkaline Phosphatase (56-112) IU/L Troponin I (<0.017-0.056) ng/mL NT-Pro-B Natriuret Pep (<=125) pg/mL Total Protein (6.0-8.0) g/dL Albumin (3.2-4.6) g/dL Globulin g/dL Albumin/Globulin Ratio Urine Color (YELLOW) Urine Appearance (CLEAR) Urine pH (5.0-6.5) Ur Specific [place] (1.010-1.025) Urine Protein (NEGATIVE) mg/dL Urine Glucose (UA) (NEGATIVE) mg/dL Urine Ketones (NEGATIVE) mg/dL Urine Occult Blood (NEGATIVE) Urine Nitrite (NEGATIVE) Urine Bilirubin (NEGATIVE) Urine Urobilinogen (NEGATIVE) mg/dL Ur Leukocyte Esterase (NEGATIVE) Urine RBC (0) Urine WBC (0) Ur Squamous Epith Cells (NS,R,O) Amorphous Sediment Urine Bacteria (NS) 10/23/17 10/24/17 10/24/17 Range/Units 21:03 06:15 06:15 WBC 17.3 H (4.5-12.0) X10-3/uL RBC 5.17 (4.30-5.75) x10(6)uL Hgb 16.0 H (11.5-15.5) g/dL Hct 48.5 (30.0-51.3) % MCV 93.7 (80-96) fL MCH 30.9 (27.7-33.6) pg MCHC 33.0 (32.2-35.4) g/dL RDW 14.0 (11.5-15.5) % Plt Count 225 (125-369) X10(3)uL MPV (7.4-10.4) fL Neut % (Auto) (46-82) % Lymph % (Auto) (13-37) % [place] % (Auto) (4-12) % Eos % (Auto) (1.0-5.0) % Baso % (Auto) (0-2) % Neut # (Auto) (1.6-8.3) # Lymph # (Auto) (0.6-5.0) # [place] # (Auto) (0.0-1.3) # Eos # (Auto) (0.0-0.8) # Baso # (Auto) (0.0-0.2) # Add Manual Diff Neutrophils % (Manual) (46-82) % Band Neutrophils % (0-6) % Lymphocytes % (Manual) (13-37) % Monocytes % (Manual) (4-12) % PT (8.7-11.1) INR (0.89-1.13) ABG pH (7.35-7.45) ABG pCO2 (35-45) mmHg ABG pO2 (83-108) mmHg ABG HCO3 (22-26) mmol/L ABG O2 Saturation (96-97) % ABG Base Excess (-2-2) Ponce Test O2 Delivery Device Sodium 143 (135-145) mmol/L Potassium 4.1 (3.5-5.3) mmol/L Chloride 103 (100-110) mmol/L Carbon Dioxide 33 H (21-32) mmol/L BUN 31 H D (7-18) mg/dL Creatinine 1.1 (0.70-1.30) mg/dL Est Cr Clr Drug Dosing 60.83 mL/min Estimated GFR (MDRD) > 60 (>60) BUN/Creatinine Ratio 28.2 H (9-20) Glucose 137 H (80-116) mg/dL POC Glucose 150 H (80-116) mg/dL Hemoglobin A1c (4.5-6.2) % Lactic Acid (0.4-2.2) mmol/L Uric Acid (2.6-6.0) mg/dL Calcium 9.4 (8.6-10.2) mg/dL Total Bilirubin 0.4 (0.1-1.3) mg/dL AST 20 (5-25) IU/L ALT 24 (12-36) U/L Alkaline Phosphatase 121 H (56-112) IU/L Troponin I (<0.017-0.056) ng/mL NT-Pro-B Natriuret Pep (<=125) pg/mL Total Protein 7.7 (6.0-8.0) g/dL Albumin 3.1 L (3.2-4.6) g/dL Globulin 4.6 g/dL Albumin/Globulin Ratio 0.7 Urine Color (YELLOW) Urine Appearance (CLEAR) Urine pH (5.0-6.5) Ur Specific [place] (1.010-1.025) Urine Protein (NEGATIVE) mg/dL Urine Glucose (UA) (NEGATIVE) mg/dL Urine Ketones (NEGATIVE) mg/dL Urine Occult Blood (NEGATIVE) Urine Nitrite (NEGATIVE) Urine Bilirubin (NEGATIVE) Urine Urobilinogen (NEGATIVE) mg/dL Ur Leukocyte Esterase (NEGATIVE) Urine RBC (0) Urine WBC (0) Ur Squamous Epith Cells (NS,R,O) Amorphous Sediment Urine Bacteria (NS) 10/24/17 10/24/17 10/24/17 Range/Units 06:15 07:28 11:03 WBC (4.5-12.0) X10-3/uL RBC (4.30-5.75) x10(6)uL Hgb (11.5-15.5) g/dL Hct (30.0-51.3) % MCV (80-96) fL MCH (27.7-33.6) pg MCHC (32.2-35.4) g/dL RDW (11.5-15.5) % Plt Count (125-369) X10(3)uL MPV (7.4-10.4) fL Neut % (Auto) (46-82) % Lymph % (Auto) (13-37) % [place] % (Auto) (4-12) % Eos % (Auto) (1.0-5.0) % Baso % (Auto) (0-2) % Neut # (Auto) (1.6-8.3) # Lymph # (Auto) (0.6-5.0) # [place] # (Auto) (0.0-1.3) # Eos # (Auto) (0.0-0.8) # Baso # (Auto) (0.0-0.2) # Add Manual Diff Neutrophils % (Manual) (46-82) % Band Neutrophils % (0-6) % Lymphocytes % (Manual) (13-37) % Monocytes % (Manual) (4-12) % PT (8.7-11.1) INR (0.89-1.13) ABG pH (7.35-7.45) ABG pCO2 (35-45) mmHg ABG pO2 (83-108) mmHg ABG HCO3 (22-26) mmol/L ABG O2 Saturation (96-97) % ABG Base Excess (-2-2) [place] Test O2 Delivery Device Sodium (135-145) mmol/L Potassium (3.5-5.3) mmol/L Chloride (100-110) mmol/L Carbon Dioxide (21-32) mmol/L BUN (7-18) mg/dL Creatinine (0.70-1.30) mg/dL Est Cr Clr Drug Dosing mL/min Estimated GFR (MDRD) (>60) BUN/Creatinine Ratio (9-20) Glucose (80-116) mg/dL POC Glucose 128 H 176 H (80-116) mg/dL Hemoglobin A1c 5.8 (4.5-6.2) % Lactic Acid (0.4-2.2) mmol/L Uric Acid (2.6-6.0) mg/dL Calcium (8.6-10.2) mg/dL Total Bilirubin (0.1-1.3) mg/dL AST (5-25) IU/L ALT (12-36) U/L Alkaline Phosphatase (56-112) IU/L Troponin I (<0.017-0.056) ng/mL NT-Pro-B Natriuret Pep (<=125) pg/mL Total Protein (6.0-8.0) g/dL Albumin (3.2-4.6) g/dL Globulin g/dL Albumin/Globulin Ratio Urine Color (YELLOW) Urine Appearance (CLEAR) Urine pH (5.0-6.5) Ur Specific [place] (1.010-1.025) Urine Protein (NEGATIVE) mg/dL Urine Glucose (UA) (NEGATIVE) mg/dL Urine Ketones (NEGATIVE) mg/dL Urine Occult Blood (NEGATIVE) Urine Nitrite (NEGATIVE) Urine Bilirubin (NEGATIVE) Urine Urobilinogen (NEGATIVE) mg/dL Ur Leukocyte Esterase (NEGATIVE) Urine RBC (0) Urine WBC (0) Ur Squamous Epith Cells (NS,R,O) Amorphous Sediment Urine Bacteria (NS) 10/24/17 10/24/17 10/25/17 Range/Units 17:10 20:47 06:35 WBC 15.6 H (4.5-12.0) X10-3/uL RBC 5.15 (4.30-5.75) x10(6)uL Hgb 15.5 (11.5-15.5) g/dL Hct 48.0 (30.0-51.3) % MCV 93.2 (80-96) fL MCH 30.1 (27.7-33.6) pg MCHC 32.3 (32.2-35.4) g/dL RDW 14.1 (11.5-15.5) % Plt Count 249 (125-369) X10(3)uL MPV 8.2 (7.4-10.4) fL Neut % (Auto) (46-82) % Lymph % (Auto) (13-37) % [place] % (Auto) (4-12) % Eos % (Auto) (1.0-5.0) % Baso % (Auto) (0-2) % Neut # (Auto) (1.6-8.3) # Lymph # (Auto) (0.6-5.0) # [place] # (Auto) (0.0-1.3) # Eos # (Auto) (0.0-0.8) # Baso # (Auto) (0.0-0.2) # Add Manual Diff Yes Neutrophils % (Manual) 98 H (46-82) % Band Neutrophils % (0-6) % Lymphocytes % (Manual) 2 L (13-37) % Monocytes % (Manual) (4-12) % PT (8.7-11.1) INR (0.89-1.13) ABG pH (7.35-7.45) ABG pCO2 (35-45) mmHg ABG pO2 (83-108) mmHg ABG HCO3 (22-26) mmol/L ABG O2 Saturation (96-97) % ABG Base Excess (-2-2) [place]once Test O2 Delivery Device Sodium (135-145) mmol/L Potassium (3.5-5.3) mmol/L Chloride (100-110) mmol/L Carbon Dioxide (21-32) mmol/L BUN (7-18) mg/dL Creatinine (0.70-1.30) mg/dL Est Cr Clr Drug Dosing mL/min Estimated GFR (MDRD) (>60) BUN/Creatinine Ratio (9-20) Glucose (80-116) mg/dL POC Glucose 106 167 H (80-116) mg/dL Hemoglobin A1c (4.5-6.2) % Lactic Acid (0.4-2.2) mmol/L Uric Acid (2.6-6.0) mg/dL Calcium (8.6-10.2) mg/dL Total Bilirubin (0.1-1.3) mg/dL AST (5-25) IU/L ALT (12-36) U/L Alkaline Phosphatase (56-112) IU/L Troponin I (<0.017-0.056) ng/mL NT-Pro-B Natriuret Pep (<=125) pg/mL Total Protein (6.0-8.0) g/dL Albumin (3.2-4.6) g/dL Globulin g/dL Albumin/Globulin Ratio Urine Color (YELLOW) Urine Appearance (CLEAR) Urine pH (5.0-6.5) Ur Specific [place] (1.010-1.025) Urine Protein (NEGATIVE) mg/dL Urine Glucose (UA) (NEGATIVE) mg/dL Urine Ketones (NEGATIVE) mg/dL Urine Occult Blood (NEGATIVE) Urine Nitrite (NEGATIVE) Urine Bilirubin (NEGATIVE) Urine Urobilinogen (NEGATIVE) mg/dL Ur Leukocyte Esterase (NEGATIVE) Urine RBC (0) Urine WBC (0) Ur Squamous Epith Cells (NS,R,O) Amorphous Sediment Urine Bacteria (NS) 10/25/17 10/25/17 10/25/17 Range/Units 06:35 07:55 11:18 WBC (4.5-12.0) X10-3/uL RBC (4.30-5.75) x10(6)uL Hgb (11.5-15.5) g/dL Hct (30.0-51.3) % MCV (80-96) fL MCH (27.7-33.6) pg MCHC (32.2-35.4) g/dL RDW (11.5-15.5) % Plt Count (125-369) X10(3)uL MPV (7.4-10.4) fL Neut % (Auto) (46-82) % Lymph % (Auto) (13-37) % [place] % (Auto) (4-12) % Eos % (Auto) (1.0-5.0) % Baso % (Auto) (0-2) % Neut # (Auto) (1.6-8.3) # Lymph # (Auto) (0.6-5.0) # [place] # (Auto) (0.0-1.3) # Eos # (Auto) (0.0-0.8) # Baso # (Auto) (0.0-0.2) # Add Manual Diff Neutrophils % (Manual) (46-82) % Band Neutrophils % (0-6) % Lymphocytes % (Manual) (13-37) % Monocytes % (Manual) (4-12) % PT (8.7-11.1) INR (0.89-1.13) ABG pH 7.40 (7.35-7.45) ABG pCO2 48 H (35-45) mmHg ABG pO2 65 L (83-108) mmHg ABG HCO3 29 H (22-26) mmol/L ABG O2 Saturation 92 L (96-97) % ABG Base Excess 3.0 H (-2-2) [place]once Test Passed O2 Delivery Device Nasal cannula Sodium 141 (135-145) mmol/L Potassium 3.9 (3.5-5.3) mmol/L Chloride 101 (100-110) mmol/L Carbon Dioxide 31 (21-32) mmol/L BUN 40 H (7-18) mg/dL Creatinine 1.3 (0.70-1.30) mg/dL Est Cr Clr Drug Dosing 51.47 mL/min Estimated GFR (MDRD) 54 L (>60) BUN/Creatinine Ratio 30.8 H (9-20) Glucose 144 H (80-116) mg/dL POC Glucose 138 H (80-116) mg/dL Hemoglobin A1c (4.5-6.2) % Lactic Acid (0.4-2.2) mmol/L Uric Acid (2.6-6.0) mg/dL Calcium 9.4 (8.6-10.2) mg/dL Total Bilirubin (0.1-1.3) mg/dL AST (5-25) IU/L ALT (12-36) U/L Alkaline Phosphatase (56-112) IU/L Troponin I (<0.017-0.056) ng/mL NT-Pro-B Natriuret Pep (<=125) pg/mL Total Protein (6.0-8.0) g/dL Albumin (3.2-4.6) g/dL Globulin g/dL Albumin/Globulin Ratio Urine Color (YELLOW) Urine Appearance (CLEAR) Urine pH (5.0-6.5) Ur Specific [place] (1.010-1.025) Urine Protein (NEGATIVE) mg/dL Urine Glucose (UA) (NEGATIVE) mg/dL Urine Ketones (NEGATIVE) mg/dL Urine Occult Blood (NEGATIVE) Urine Nitrite (NEGATIVE) Urine Bilirubin (NEGATIVE) Urine Urobilinogen (NEGATIVE) mg/dL Ur Leukocyte Esterase (NEGATIVE) Urine RBC (0) Urine WBC (0) Ur Squamous Epith Cells (NS,R,O) Amorphous Sediment Urine Bacteria (NS) 10/25/17 10/26/17 10/26/17 Range/Units 17:23 06:13 06:13 WBC 12.4 H (4.5-12.0) X10-3/uL RBC 5.32 (4.30-5.75) x10(6)uL Hgb 16.1 H (11.5-15.5) g/dL Hct 49.1 (30.0-51.3) % MCV 92.2 (80-96) fL MCH 30.2 (27.7-33.6) pg MCHC 32.8 (32.2-35.4) g/dL RDW 14.1 (11.5-15.5) % Plt Count 266 (125-369) X10(3)uL MPV 7.9 (7.4-10.4) fL Neut % (Auto) (46-82) % Lymph % (Auto) (13-37) % [place] % (Auto) (4-12) % Eos % (Auto) (1.0-5.0) % Baso % (Auto) (0-2) % Neut # (Auto) (1.6-8.3) # Lymph # (Auto) (0.6-5.0) # [place] # (Auto) (0.0-1.3) # Eos # (Auto) (0.0-0.8) # Baso # (Auto) (0.0-0.2) # Add Manual Diff Yes Neutrophils % (Manual) 82 (46-82) % Band Neutrophils % 4 (0-6) % Lymphocytes % (Manual) 10 L (13-37) % Monocytes % (Manual) 4 (4-12) % PT (8.7-11.1) INR (0.89-1.13) ABG pH (7.35-7.45) ABG pCO2 (35-45) mmHg ABG pO2 (83-108) mmHg ABG HCO3 (22-26) mmol/L ABG O2 Saturation (96-97) % ABG Base Excess (-2-2) [place]once Test O2 Delivery Device Sodium 141 (135-145) mmol/L Potassium 4.0 (3.5-5.3) mmol/L Chloride 102 (100-110) mmol/L Carbon Dioxide 30 (21-32) mmol/L BUN 39 H (7-18) mg/dL Creatinine 1.2 (0.70-1.30) mg/dL Est Cr Clr Drug Dosing 55.76 mL/min Estimated GFR (MDRD) 59 L (>60) BUN/Creatinine Ratio 32.5 H (9-20) Glucose 140 H (80-116) mg/dL POC Glucose 133 H (80-116) mg/dL Hemoglobin A1c (4.5-6.2) % Lactic Acid (0.4-2.2) mmol/L Uric Acid (2.6-6.0) mg/dL Calcium 9.2 (8.6-10.2) mg/dL Total Bilirubin (0.1-1.3) mg/dL AST (5-25) IU/L ALT (12-36) U/L Alkaline Phosphatase (56-112) IU/L Troponin I (<0.017-0.056) ng/mL NT-Pro-B Natriuret Pep (<=125) pg/mL Total Protein (6.0-8.0) g/dL Albumin (3.2-4.6) g/dL Globulin g/dL Albumin/Globulin Ratio Urine Color (YELLOW) Urine Appearance (CLEAR) Urine pH (5.0-6.5) Ur Specific [place] (1.010-1.025) Urine Protein (NEGATIVE) mg/dL Urine Glucose (UA) (NEGATIVE) mg/dL Urine Ketones (NEGATIVE) mg/dL Urine Occult Blood (NEGATIVE) Urine Nitrite (NEGATIVE) Urine Bilirubin (NEGATIVE) Urine Urobilinogen (NEGATIVE) mg/dL Ur Leukocyte Esterase (NEGATIVE) Urine RBC (0) Urine WBC (0) Ur Squamous Epith Cells (NS,R,O) Amorphous Sediment Urine Bacteria (NS) 10/27/17 10/27/17 10/27/17 Range/Units 06:29 08:30 08:30 WBC 12.4 H (4.5-12.0) X10-3/uL RBC 5.70 (4.30-5.75) x10(6)uL Hgb 16.9 H (11.5-15.5) g/dL Hct 52.7 H (30.0-51.3) % MCV 92.5 (80-96) fL MCH 29.7 (27.7-33.6) pg MCHC 32.1 L (32.2-35.4) g/dL RDW 14.1 (11.5-15.5) % Plt Count 261 (125-369) X10(3)uL MPV 7.9 (7.4-10.4) fL Neut % (Auto) 82.5 H (46-82) % Lymph % (Auto) 10.2 L (13-37) % [place] % (Auto) 5.4 (4-12) % Eos % (Auto) 0 L (1.0-5.0) % Baso % (Auto) 2 (0-2) % Neut # (Auto) 10.2 H (1.6-8.3) # Lymph # (Auto) 1.3 (0.6-5.0) # [place] # (Auto) 0.7 (0.0-1.3) # Eos # (Auto) 0.0 (0.0-0.8) # Baso # (Auto) 0.2 (0.0-0.2) # Add Manual Diff Neutrophils % (Manual) (46-82) % Band Neutrophils % (0-6) % Lymphocytes % (Manual) (13-37) % Monocytes % (Manual) (4-12) % PT (8.7-11.1) INR (0.89-1.13) ABG pH (7.35-7.45) ABG pCO2 (35-45) mmHg ABG pO2 (83-108) mmHg ABG HCO3 (22-26) mmol/L ABG O2 Saturation (96-97) % ABG Base Excess (-2-2) Ponce Test O2 Delivery Device Sodium 140 (135-145) mmol/L Potassium 3.4 L (3.5-5.3) mmol/L Chloride 101 (100-110) mmol/L Carbon Dioxide 32 (21-32) mmol/L BUN 37 H (7-18) mg/dL Creatinine 1.2 (0.70-1.30) mg/dL Est Cr Clr Drug Dosing 55.76 mL/min Estimated GFR (MDRD) 59 L (>60) BUN/Creatinine Ratio 30.8 H (9-20) Glucose 132 H (80-116) mg/dL POC Glucose 94 (80-116) mg/dL Hemoglobin A1c (4.5-6.2) % Lactic Acid (0.4-2.2) mmol/L Uric Acid (2.6-6.0) mg/dL Calcium 8.9 (8.6-10.2) mg/dL Total Bilirubin 0.8 (0.1-1.3) mg/dL AST 25 D (5-25) IU/L ALT 48 H D (12-36) U/L Alkaline Phosphatase 101 (56-112) IU/L Troponin I (<0.017-0.056) ng/mL NT-Pro-B Natriuret Pep (<=125) pg/mL Total Protein 7.0 (6.0-8.0) g/dL Albumin 3.0 L (3.2-4.6) g/dL Globulin 4.0 g/dL Albumin/Globulin Ratio 0.8 Urine Color (YELLOW) Urine Appearance (CLEAR) Urine pH (5.0-6.5) Ur Specific [place] (1.010-1.025) Urine Protein (NEGATIVE) mg/dL Urine Glucose (UA) (NEGATIVE) mg/dL Urine Ketones (NEGATIVE) mg/dL Urine Occult Blood (NEGATIVE) Urine Nitrite (NEGATIVE) Urine Bilirubin (NEGATIVE) Urine Urobilinogen (NEGATIVE) mg/dL Ur Leukocyte Esterase (NEGATIVE) Urine RBC (0) Urine WBC (0) Ur Squamous Epith Cells (NS,R,O) Amorphous Sediment Urine Bacteria (NS) [facility] Results - Last 24 hrs: Microbiology 10/22/17 17:55 Blood Aerobic Blood Culture - Preliminary NO GROWTH AFTER 4 DAYS 10/22/17 17:55 Blood Anaerobic Blood Culture - Preliminary NO GROWTH AFTER 4 DAYS 10/22/17 17:50 Blood Aerobic Blood Culture - Preliminary NO GROWTH AFTER 4 DAYS 10/22/17 17:50 Blood Anaerobic Blood Culture - Preliminary NO GROWTH AFTER 4 DAYS 10/23/17 17:30 Sputum - Expectorated Gram Stain - Final 10/23/17 17:30 Sputum - Expectorated Sputum Culture - Final Normal [facility] Med Orders - Current: Current Medications Acetaminophen (Tylenol Extra Strength) 1,000 mg PO Q6H PRN PRN Reason: left leg pain >3<5/10 Hydrocodone Bitart/Acetaminophen ([place] 325-5 Mg) 1 tab PO Q4H PRN PRN Reason: left leg pain Albuterol (Proventil Neb Soln) 2.5 mg NEB Q4H PRN PRN Reason: sob Last Admin: 10/26/17 02:50 Dose: 2.5 mg Albuterol/Ipratropium (Duoneb 3.0-0.5 Mg/3 Ml) 3 ml NEB QIDRT [facility] Last Admin: 10/27/17 10:56 Dose: 3 ml Amoxicillin/Clavulanate Potassium (Augmentin 875 Mg/125 Mg) 1 tab PO BID [facility] Last Admin: 10/27/17 08:01 Dose: 1 tab Lisinopril/HCTZ (Lisinopril/Hctz 10-12.5 Mg) 1 tab PO DAILY [facility] Last Admin: 10/27/17 09:47 Dose: 1 tab Prednisone (Prednisone) 60 mg PO WITHBREAKFAST [facility] Last Admin: 10/27/17 07:56 Dose: 60 mg Sodium Chloride (Saline Flush) 10 ml FLUSH ASDIRECTED PRN PRN Reason: Keep Vein Open Last Admin: 10/26/17 08:33 Dose: 10 ml Discontinued Medications Hydrocodone Bitart/Acetaminophen ([place] 325-5 Mg) 1 tab PO ONETIME ONE Stop: 10/26/17 11:39 Last Admin: 10/26/17 12:21 Dose: 1 tab Albuterol/Ipratropium (Duoneb 3.0-0.5 Mg/3 Ml) 3 ml NEB ONETIME ONE Stop: 10/22/17 15:58 Last Admin: 10/22/17 16:56 Dose: 3 ml Ceftriaxone Sodium (Rocephin) 1,000 mg IV Q24H [facility] Last Admin: 10/22/17 20:09 Dose: 1,000 mg Ceftriaxone Sodium (Rocephin) 2 gm IV Q24H [facility] Last Admin: 10/25/17 20:02 Dose: 2 gm Ceftriaxone Sodium (Rocephin) 1,000 mg IV ONETIME ONE Stop: 10/23/17 10:01 Last Admin: 10/23/17 10:46 Dose: 1,000 mg Furosemide (Lasix) 40 mg IVPUSH NOW ONE Stop: 10/23/17 12:20 Last Admin: 10/23/17 13:26 Dose: 40 mg Ceftriaxone Sodium 1,000 mg/ (Sodium Chloride) 50 mls @ 100 mls/hr IV Q24H [facility] Last Admin: 10/22/17 21:19 Dose: Not Given Azithromycin 500 mg/ Sodium (Chloride) 250 mls @ 250 mls/hr IV Q24H [facility] Stop: 10/27/17 13:29 Last Admin: 10/25/17 12:52 Dose: 250 mls/hr Insulin Aspart (Novolog) 0 unit SUBCUT TIDMEALS [facility] PRN Reason: Protocol Last Admin: 10/25/17 17:24 Dose: Not Given Methylprednisolone Sodium Succinate (Solu-Medrol) 125 mg IVPUSH ONETIME ONE Stop: 10/22/17 15:58 Last Admin: 10/22/17 16:54 Dose: 125 mg Methylprednisolone Sodium Succinate (Solu-Medrol) 125 mg IVPUSH Q8H [facility] Last Admin: 10/22/17 18:46 Dose: Not Given Methylprednisolone Sodium Succinate (Solu-Medrol) 125 mg IVPUSH Q8H [facility] Last Admin: 10/26/17 01:21 Dose: 125 mg Comments:: See PT/OT/RT reports - Exam Physical Findings Comments:: Quality Assessment: Supplemental Oxygen (2L) General: Alert, Oriented, Cooperative, No Acute Distress HEENT: Mucous Membr. Moist/[place]. No: Scleral Icterus Lungs: deminshed but clear throughout. No: Rhonchi, Wheezing Cardiovascular: Regular Rate, Regular Rhythm GI/Abdominal Exam: Normal Bowel Sounds Extremities: Leg Pain improved. (overall bilateral erythema, warmth and swelling markedly improved. ) Left ankle swelling along the lateral malleolus consistent with sprain. Good range of motion intact joint. Ulceration between the toe resolved. He will continue with lotion to legs twice a day along with bilateral Blu wraps from the feet up to just below the knee every morning, throughout the day with elevation of legs at night and Blu wraps off at night. Instructed to use a mirror to look at the bottom of his feet every night before bed. Neurological: No New Focal Deficit Psy/Mental Status: Normal Affect, Normal Mood. Very pleasant and is excited to go home today .No: Anxious, Agitated *Q Meaningful Use (DIS) - VTE *Q VTE Criteria *Q: - Stroke *Q Stroke Criteria *Q: - AMI *Q AMI Criteria *Q:
--- NOTE | 2017-10-27 14:24 | PCM.PN ---
- General Info Date of Service: 10/27/17 Functional Status: Reports: Pain Controlled, Tolerating Diet, Ambulating, Urinating, Incentive Spirometry - Review of Systems Pulmonary: Reports: Cough, Sputum. Denies: Wheezing Cardiovascular: Denies: Chest Pain, Lightheadedness Gastrointestinal: Denies: Abdominal Pain, Nausea, Vomiting Genitourinary: Reports: Incontinence Musculoskeletal: Reports: Leg Pain (left with walking better.) Neurological: Denies: Confusion, Paresthesia, Tingling - Patient Data Vitals - Most Recent: Last Vital Signs Temp 97.4 F 10/27/17 07:45 Pulse 78 10/27/17 11:10 Resp 20 10/27/17 07:45 BP 144/77 H 10/27/17 09:47 Pulse Ox 85 L 10/27/17 12:25 Weight - Most Recent: 130.997 kg I&O - Last 24 Hours: Intake & Output 10/26/17 10/27/17 10/27/17 22:59 06:59 14:59 Intake Total 720 40 Output Total 700 500 Balance 20 -460 Imaging Impressions - Last 24 Hours: echocardiogram pending. us left leg pending. Lab Results Last 24 Hours: Laboratory Results - last 24 hr 10/27/17 10/27/17 10/27/17 Range/Units 06:29 08:30 08:30 WBC 12.4 H (4.5-12.0) X10-3/uL RBC 5.70 (4.30-5.75) x10(6)uL Hgb 16.9 H (11.5-15.5) g/dL Hct 52.7 H (30.0-51.3) % MCV 92.5 (80-96) fL MCH 29.7 (27.7-33.6) pg MCHC 32.1 L (32.2-35.4) g/dL RDW 14.1 (11.5-15.5) % Plt Count 261 (125-369) X10(3)uL MPV 7.9 (7.4-10.4) fL Neut % (Auto) 82.5 H (46-82) % Lymph % (Auto) 10.2 L (13-37) % [place] % (Auto) 5.4 (4-12) % Eos % (Auto) 0 L (1.0-5.0) % Baso % (Auto) 2 (0-2) % Neut # (Auto) 10.2 H (1.6-8.3) # Lymph # (Auto) 1.3 (0.6-5.0) # [place] # (Auto) 0.7 (0.0-1.3) # Eos # (Auto) 0.0 (0.0-0.8) # Baso # (Auto) 0.2 (0.0-0.2) # Sodium 140 (135-145) mmol/L Potassium 3.4 L (3.5-5.3) mmol/L Chloride 101 (100-110) mmol/L Carbon Dioxide 32 (21-32) mmol/L BUN 37 H (7-18) mg/dL Creatinine 1.2 (0.70-1.30) mg/dL Est Cr Clr Drug Dosing 55.76 mL/min Estimated GFR (MDRD) 59 L (>60) BUN/Creatinine Ratio 30.8 H (9-20) Glucose 132 H (80-116) mg/dL POC Glucose 94 (80-116) mg/dL Calcium 8.9 (8.6-10.2) mg/dL Total Bilirubin 0.8 (0.1-1.3) mg/dL AST 25 D (5-25) IU/L ALT 48 H D (12-36) U/L Alkaline Phosphatase 101 (56-112) IU/L Total Protein 7.0 (6.0-8.0) g/dL Albumin 3.0 L (3.2-4.6) g/dL Globulin 4.0 g/dL Albumin/Globulin Ratio 0.8 [place] Results Last 24 Hours: Microbiology 10/22/17 17:55 Blood Aerobic Blood Culture - Preliminary NO GROWTH AFTER 4 DAYS 10/22/17 17:55 Blood Anaerobic Blood Culture - Preliminary NO GROWTH AFTER 4 DAYS 10/22/17 17:50 Blood Aerobic Blood Culture - Preliminary NO GROWTH AFTER 4 DAYS 10/22/17 17:50 Blood Anaerobic Blood Culture - Preliminary NO GROWTH AFTER 4 DAYS 10/23/17 17:30 Sputum - Expectorated Gram Stain - Final 10/23/17 17:30 Sputum - Expectorated Sputum Culture - Final Normal [facility] Orders - Current: Current Medications Acetaminophen (Tylenol Extra Strength) 1,000 mg PO Q6H PRN PRN Reason: left leg pain >3<5/10 Hydrocodone Bitart/Acetaminophen ([place] 325-5 Mg) 1 tab PO Q4H PRN PRN Reason: left leg pain Albuterol (Proventil Neb Soln) 2.5 mg NEB Q4H PRN PRN Reason: sob Last Admin: 10/26/17 02:50 Dose: 2.5 mg Albuterol/Ipratropium (Duoneb 3.0-0.5 Mg/3 Ml) 3 ml [facility]B [facility]IDRT [facility] Last Admin: 10/27/17 10:56 Dose: 3 ml Amoxicillin/Clavulanate Potassium (Augmentin 875 Mg/125 Mg) 1 tab PO BID [facility] Last Admin: 10/27/17 08:01 Dose: 1 tab Lisinopril/HCTZ (Lisinopril/Hctz 10-12.5 Mg) 1 tab PO DAILY [facility] Last Admin: 10/27/17 09:47 Dose: 1 tab Prednisone (Prednisone) 60 mg PO WITHBREAKFAST [facility] Last Admin: 10/27/17 07:56 Dose: 60 mg Sodium Chloride (Saline Flush) 10 ml FLUSH ASDIRECTED PRN PRN Reason: Keep Vein Open Last Admin: 10/26/17 08:33 Dose: 10 ml Discontinued Medications Hydrocodone Bitart/Acetaminophen ([place] 325-5 Mg) 1 tab PO ONETIME ONE Stop: 10/26/17 11:39 Last Admin: 10/26/17 12:21 Dose: 1 tab Albuterol/Ipratropium (Duoneb 3.0-0.5 Mg/3 Ml) 3 ml NEB ONETIME ONE Stop: 10/22/17 15:58 Last Admin: 10/22/17 16:56 Dose: 3 ml Ceftriaxone Sodium (Rocephin) 1,000 mg IV Q24H [facility] Last Admin: 10/22/17 20:09 Dose: 1,000 mg Ceftriaxone Sodium (Rocephin) 2 gm IV Q24H [facility] Last Admin: 10/25/17 20:02 Dose: 2 gm Ceftriaxone Sodium (Rocephin) 1,000 mg IV ONETIME ONE Stop: 10/23/17 10:01 Last Admin: 10/23/17 10:46 Dose: 1,000 mg Furosemide (Lasix) 40 mg IVPUSH NOW ONE Stop: 10/23/17 12:20 Last Admin: 10/23/17 13:26 Dose: 40 mg Ceftriaxone Sodium 1,000 mg/ (Sodium Chloride) 50 mls @ 100 mls/hr IV Q24H [facility] Last Admin: 10/22/17 21:19 Dose: Not Given Azithromycin 500 mg/ Sodium (Chloride) 250 mls @ 250 mls/hr IV Q24H [facility] Stop: 10/27/17 13:29 Last Admin: 10/25/17 12:52 Dose: 250 mls/hr Insulin Aspart (Novolog) 0 unit SUBCUT TIDMEALS [facility] PRN Reason: Protocol Last Admin: 10/25/17 17:24 Dose: Not Given Methylprednisolone Sodium Succinate (Solu-Medrol) 125 mg IVPUSH ONETIME ONE Stop: 10/22/17 15:58 Last Admin: 10/22/17 16:54 Dose: 125 mg Methylprednisolone Sodium Succinate (Solu-Medrol) 125 mg IVPUSH Q8H [facility] Last Admin: 10/22/17 18:46 Dose: Not Given Methylprednisolone Sodium Succinate (Solu-Medrol) 125 mg IVPUSH Q8H [facility] Last Admin: 10/26/17 01:21 Dose: 125 mg - Exam Quality Assessment: Supplemental Oxygen (2L) General: Alert, Oriented, Cooperative, No Acute Distress HEENT: Mucous Membr. Moist/[place]. No: Scleral Icterus Lungs: Rales (bilateral bases mild compared to admit.). No: Rhonchi, Wheezing Cardiovascular: Regular Rate, Regular Rhythm GI/Abdominal Exam: Normal Bowel Sounds Extremities: Leg Pain (left calf. overall bilateral erythema, warmth and swelling markedly improved. ) Neurological: No New Focal Deficit Psy/Mental Status: Normal Affect, Normal Mood. No: Anxious, Agitated - Problem List & Annotations (1) COPD with acute exacerbation SNOMED Code(s): 765089755 Code(s): J44.1 - CHRONIC OBSTRUCTIVE PULMONARY DISEASE W (ACUTE) EXACERBATION Status: Acute Current Visit: Yes (2) Cellulitis of left lower leg SNOMED Code(s): 197041156 Code(s): L03.116 - CELLULITIS OF LEFT LOWER LIMB Status: Acute Current Visit: Yes (3) Acute respiratory distress SNOMED Code(s): 735904970 Code(s): R06.03 - ACUTE RESPIRATORY DISTRESS Status: Resolved Current Visit: Yes (4) Hypoxia SNOMED Code(s): 714379301 Code(s): R09.02 - HYPOXEMIA Status: Chronic Current Visit: Yes (5) DNI (do not intubate) SNOMED Code(s): 283794860 Code(s): Z78.9 - OTHER SPECIFIED HEALTH STATUS Status: Acute Current Visit: Yes (6) DNR (do not resuscitate) Status: Acute Current Visit: Yes (7) Palliative care status SNOMED Code(s): 450619082 Code(s): Z51.5 - ENCOUNTER FOR PALLIATIVE CARE Status: Acute Current Visit: Yes (8) CO2 retention SNOMED Code(s): 72848732 Code(s): E87.2 - ACIDOSIS Status: Chronic Current Visit: Yes (9) Venous stasis of both lower extremities SNOMED Code(s): 226640246 Code(s): I87.8 - OTHER SPECIFIED DISORDERS OF VEINS Status: Chronic Current Visit: Yes (10) Morbid exogenous obesity SNOMED Code(s): 246796158 Code(s): E66.01 - MORBID (SEVERE) OBESITY DUE TO EXCESS CALORIES Status: Chronic Current Visit: Yes - Problem List Review Problem List Initiated/Reviewed/Updated: Yes - My Orders Last 24 Hours: My Active Orders 10/27/17 08:00 VL Duplex Lwr Ext Veins Comp [US] Routine 10/27/17 09:00 Echo Comp wo Cont [US] Routine - Assessment Assessment:: please see above. - Plan Plan:: Very complicated patient with several comorbidities resulting in a poor to fair prognosis. He has restrictive and obstructive COPD and would be a difficult intubation. He is obviously a chronic CO2 retainer so will need to be cautious with regards to keeping his sats no higher than 93% but also monitoring his work of breathing. continued need for 2 L of oxygen to keep his sats upper 80s, low 90s. No events overnight. He is remains afebrile greater than 72 hours. His white count is stable. Electrolyte renal function look good.good urine output. Incentive spirometry going well. He is on DuoNeb 4 times a day, incentive spirometry every 2 hours while awake sputum culture shows mixed normal gee. head of his bed elevated, po steroids to be tapered down outpatient for acute COPD exacerbation. switched him to po abx yesterday covering cellulitis of left lower extremity not at risk for MRSA. ulceration covered with bacitracin and looks good. He is showing some increased tenderness to the calf rule out acute onset DVT with duplex ultrasound pending. continue to elevate the lower extremities while sitting up and walking and aces can come off at night. echocardiogram scheduled this morning. Getting Lovenox injections to prevent DVTs. blood sugars are good and A1c 5.5 so will cut his accu checks to bid. He'll continue his home lisinopril and will be adjusted outpt per his pcp. We have already scheduled a follow up appt with Dr. Yareli MD on Thursday. (6 days from now). PT OT working with him. He will need home health upon discharge regarding ADLs especially of the lower extremities for cares, med management, safety assessment. Eval need home O2. Pulmonary status is guarded. He will eventually need a sleep study and PFTs. he remains DNI/DNR, and palliative care. He does agree to the above recommendations and plan of care in this acute setting. Anticipate discharge to his own appt tomorrow with coordination regarding outpt services.
[2017-10-28] MEDS: Albuterol/Ipratropium 3.0-0.5 MG/3 ML Neb Soln NEB SCH ×2 (07:18→10:42)
[2017-10-28] MEDS: Hydrochlorothiazide/Lisinopril 12.5-10 MG Tab PO SCH (08:25)
[2017-10-28] MEDS: predniSONE 20 MG Tab PO SCH (08:26)
[2017-10-28] MEDS: Amoxicillin/Clavulanate K 875-125 MG Tab PO SCH (08:26)
--- NOTE | 2017-10-28 08:27 | US ---
INDICATION: Left calf pain and swelling with infection, question DVT. DUPLEX ULTRASOUND, LEFT LOWER EXTREMITY VEINS: Utilizing 2-D real time, duplex Doppler spectral analysis, and color flow imaging, examination of the left lower extremity veins revealed a difficult examination due to patient's size, with veins not as well visualized as expected. Valsalva maneuver was necessary to evaluate the more distal portions of the veins. There was no evidence of deep venous thrombosis, however, with compression and color flow noted in the deep venous structures. The greater saphenous was also visualized to the mid- thigh area, showing no evidence of superficial venous thrombosis in that area. Valves were not evaluated. IMPRESSION: No evidence of deep venous thrombosis as visualized. MTDD
== END 2017-10-28 11:20 | disposition home health service (06) | DRG 191 ==
LOC: FB.ED 15:42 → FB.MS 17:30 → OBSVTOIN 10-23 12:13
PROVIDERS: ADMIT Emergency Medicine; ATTEND Family Medicine
DX: J44.1 Chronic obstructive pulmonary disease with (acute) exacerbation (principal); R46.0 Very low level of personal hygiene; E66.9 Obesity, unspecified; L03.116 Cellulitis of left lower limb; E87.2 Acidosis; M79.662 Pain in left lower leg; Z68.41 Body mass index [BMI] 40.0-44.9, adult; R06.03 Acute respiratory distress; R06.02 Shortness of breath; R09.02 Hypoxemia; L03.311 Cellulitis of abdominal wall; R53.1 Weakness; I87.8 Other specified disorders of veins; E66.01 Morbid (severe) obesity due to excess calories; Z99.81 Dependence on supplemental oxygen; Z78.9 Other specified health status; Z74.2 Need for assistance at home and no other household member able to render care; Z51.5 Encounter for palliative care; W19.XXXA Unspecified fall, initial encounter; Y92.019 Unspecified place in single-family (private) house as the place of occurrence of the external cause; Z79.899 Other long term (current) drug therapy; I10 Essential (primary) hypertension; F17.200 Nicotine dependence, unspecified, uncomplicated
CPT/HCPCS: 36415; 36600; 71045; 73590; 73610; 80048; 81001; 82803; 83605; 83880; 84484; 85025; 85610; 87040 ×2; 93005; 93971; 94640 ×2; 96374; 99285; J0696 ×2; J2930 ×3; J7050 ×3; J7620; 80053; 82962; 83036; 84550; 85027; 87070; 87205; 93306; 93970; 94150; 94761; 96375; 96376; 97161-GP; A9270-GY; G0378; J0456; J1940